=== PATIENT | female | born 1990 | race Caucasian/White ===

== ENCOUNTER 2019-03-19 16:55 | Outpatient (CLI) | payer OTHER, SELFPAY ==
--- NOTE | 2019-03-19 | XR_ITS ---
WS: [id number] PROCEDURE: XR chest 2V* [id number] CLINICAL INFORMATION: COUGH COMPARISON: August 10, 2018 FINDINGS: Heart: Normal cardiac silhouette. Lungs: Lungs are clear. No consolidation or pleural fluid. Bones: Normal visualized bony structures. XR/XR chest 2V* [id number] IMPRESSION: Normal chest
== END 2019-03-19 16:56 | disposition home or self-care (01) ==
LOC: LAB 16:58
PROVIDERS: Family Provider Family Medicine; PCP Family Medicine; Visit Provider Family Medicine
DX: R05 Cough (principal)
CPT/HCPCS: 71046

== ENCOUNTER → 2019-07-18 13:25 | Outpatient (BNVA) | payer OTHER, SELFPAY | PROVIDERS: Family Provider Family Medicine; PCP Family Medicine; Visit Provider Obstetrics & Gynecology | DX: Z01.419 Encounter for gynecological examination (general) (routine) without abnormal findings (principal); Z12.4 Encounter for screening for malignant neoplasm of cervix | CPT/HCPCS: 88175 ==

== ENCOUNTER → 2019-09-29 17:55 | Outpatient (BNVA) | payer OTHER, SELFPAY | PROVIDERS: Family Provider Family Medicine; PCP Family Medicine; Visit Provider Nurse Practitioner | DX: J02.9 Acute pharyngitis, unspecified (principal); N39.0 Urinary tract infection, site not specified; B37.0 Candidal stomatitis | CPT/HCPCS: 80053; 81000; 87071; 87077; 87086; 87186; 87880 ==

== ENCOUNTER 2020-05-14 16:15 | Outpatient (CLI) | payer BC, SELFPAY ==
--- NOTE | 2020-05-14 | MR_ITS ---
WS: [id number] MRI THE PELVIS WITHOUT GADOLINIUM ENHANCEMENT. INDICATION: Sacroiliac joint pain. TECHNIQUE: MRI of the pelvis without gadolinium enhancement. Axial PD, T2, and T2 fat sat imaging. Co sherly T1 and T2 imaging. Sagittal T1-T2 imaging. FINDINGS: Normal bone marrow signal in the bony pelvis and sacrum. Chronic appearing mild sclerosis i nvolving both sacroiliac joints. No bone marrow edema. Recommend correlation with history of sacroili itis. Mild facet arthropathy in the lower lumbar spine. Mild disc bulging L5-S1 with slight effacement of v entral thecal sac. Central disc protrusion impinges the traversing left S1 nerve root. Mild right for aminal narrowing. Annular bulging L4-5. Tarlov cysts in the sacrum. Normal sacrococcygeal junction. MR/MR pelvis wo con* [id number] IMPRESSION: 1. Mild sclerosis involving both sacroiliac joints. No edema. Recommend correl ation with history of sacroiliitis. 2. Otherwise normal bone marrow signal in the lower lumbar spine and sacrum. 3. Prominent central disc protrusion L5-S1 with impingement on the left subart icular recess and traversing left S1 nerve root. Mild right L5-S1 foraminal noe rowing. 4. Mild annular bulging L4-5. 5. Mild facet arthropathy L4-L5 and L5-S1. 6. 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
== END 2020-05-14 16:16 | disposition home or self-care (01) ==
LOC: RADSHAW 16:17
PROVIDERS: PCP Family Medicine; Visit Provider Internal Medicine
DX: M53.3 Sacrococcygeal disorders, not elsewhere classified (principal); G96.191 Perineural cyst; M47.816 Spondylosis without myelopathy or radiculopathy, lumbar region; M47.817 Spondylosis without myelopathy or radiculopathy, lumbosacral region; M51.26 Other intervertebral disc displacement, lumbar region; M51.27 Other intervertebral disc displacement, lumbosacral region
CPT/HCPCS: 72195

== ENCOUNTER → 2020-05-15 10:44 | Outpatient (BNVA) | payer BC, SELFPAY | PROVIDERS: PCP Family Medicine; Visit Provider Internal Medicine | DX: Z79.899 Other long term (current) drug therapy (principal) | CPT/HCPCS: 86480; 86803; 87340 ==

== ENCOUNTER → 2020-06-17 14:43 | Outpatient (BNVA) | payer BC, SELFPAY | PROVIDERS: PCP Family Medicine; Visit Provider Internal Medicine | DX: Z79.899 Other long term (current) drug therapy (principal) | CPT/HCPCS: 84460; 85025 ==

== ENCOUNTER → 2020-07-21 18:28 | Outpatient (BNVA) | payer BC, SELFPAY | PROVIDERS: PCP Family Medicine; Visit Provider Registered Nurse Neonatal Intensive Care | DX: N39.0 Urinary tract infection, site not specified (principal) | CPT/HCPCS: 81000; 87086 ==

== ENCOUNTER → 2020-07-23 08:39 | Outpatient (BNVA) | payer BC, SELFPAY | PROVIDERS: PCP Family Medicine; Visit Provider Internal Medicine | DX: H20.9 Unspecified iridocyclitis (principal); Z79.899 Other long term (current) drug therapy | CPT/HCPCS: 84460; 85025 ==

== ENCOUNTER → 2020-08-19 17:36 | Outpatient (BNVA) | payer BC, SELFPAY | PROVIDERS: PCP Family Medicine; Visit Provider Registered Nurse Neonatal Intensive Care | DX: N39.0 Urinary tract infection, site not specified (principal) | CPT/HCPCS: 81000 ==

== ENCOUNTER → 2020-10-20 13:59 | Outpatient (BNVA) | payer BC, SELFPAY | PROVIDERS: PCP Family Medicine; Visit Provider Obstetrics & Gynecology | DX: Z01.419 Encounter for gynecological examination (general) (routine) without abnormal findings (principal); Z11.3 Encounter for screening for infections with a predominantly sexual mode of transmission | CPT/HCPCS: 86592; 86803; 87340; 87491; 87591; 87806 ==

== ENCOUNTER → 2020-10-29 13:44 | Outpatient (BNVA) | payer BC, SELFPAY | PROVIDERS: PCP Family Medicine; Visit Provider Internal Medicine | DX: Z79.899 Other long term (current) drug therapy (principal) | CPT/HCPCS: 84460; 85025 ==

== ENCOUNTER → 2020-11-04 13:03 | Outpatient (BNVA) | payer BC, SELFPAY | PROVIDERS: PCP Family Medicine; Visit Provider Obstetrics & Gynecology | DX: R10.2 Pelvic and perineal pain (principal); N83.202 Unspecified ovarian cyst, left side | CPT/HCPCS: 76830 ==

== ENCOUNTER → 2020-12-15 14:38 | Outpatient (BNVA) | payer BC, SELFPAY | PROVIDERS: PCP Family Medicine; Visit Provider Internal Medicine | DX: H20.9 Unspecified iridocyclitis (principal); Z79.899 Other long term (current) drug therapy | CPT/HCPCS: 80076; 85025 ==

== ENCOUNTER 2021-04-12 16:17 | Emergency (ER) | payer BC, SELFPAY ==
[2021-04-12 16:42] VITALS: BP 132/93; PULSE 105; RESP 18; TEMP 36.9; O2SAT 97; BMI 33.0
[2021-04-12 17:20] LABS: Hematocrit 40.8 % (37.0-47.0); Hemoglobin 13.7 g/dL (11.5-15.3); Lymphocytes # 0.8 10^3/uL (0.8-4.8); Lymphocytes % 21.9 %; Mean Corpuscular HGB Conc 33.6 g/dL (30.0-36.0); Mean Corpuscular Hemoglobin 26.7 pg (28.0-34.0); Mean Corpuscular Volume 79.4 fl (81-99); Mean Platelet Volume 10.1 fL (7.4-10.4); Monocytes # 0.4 10^3/uL (0.2-0.9); Monocytes % 9.8 %; Neutrophils # 2.58 10^3/uL (1.8-7.7); Nucleated Red Blood Cells % 0 %; Platelet Count 163 10^3/cmm (130-400); Red Blood Count 5.14 10^6/uL (4.1-5.3); Red Cell Distribution Width 13.1 % (12.1-15.1); White Blood Count 3.8 10^3/uL (4.0-10.0)
[2021-04-12 17:32] LABS: HCG, Serum Qual Negative (Negative)
[2021-04-12 17:33] LABS: Bilirubin Urine Neg (Negative); Blood Urine Trace (Negative); Glucose Urine UA Norm (Normal); Ketones Urine 1+ (Negative); Nitrate Urine Negative (Negative); Protein Urine Trace (Negative); Urine Appearance Clear (CLEAR); Urine Color Yellow (Yellow); pH Urine 6 (5-7)
[2021-04-12 17:34] LABS: Add Urine Culture? No; Add Urine Microscopic? YES; Bacteria Urine 2+ /hpf; Leukocyte Esterase Urine 2+ (Negative); RBC Urine RARE /hpf (0-2); Squamous Epithelial Cell Urine 15-25 /hpf (0-5); Urobilinogen Urine Norm (Negative)
[2021-04-12 17:43] LABS: Alanine Aminotransferase 64 U/L (0-33); Albumin Level 4.3 g/dL (3.5-5.2); Alkaline Phosphatase 65 IU/L (35-105); Anion Gap 18.5 (5-19); Aspartate Amino Transferase 46 U/L (0-32); Blood Urea Nitrogen 6 mg/dL (6-20); C Reactive Protein 64.9 mg/L (0.0-4.9); Calcium 8.5 mg/dL (8.5-10.5); Carbon Dioxide 22 mmol/L (22-29); Chloride 104 mmol/L (98-107); Glomerular Filtration Rate 99.6 mL/min (90-130); Glucose 94 mg/dL (65-115); Lipase 48 U/L (13-60); Osmolality Calculated 289 mOsm/kg (285-295); Potassium 3.5 mmol/L (3.5-5.1); Sodium 141 mmol/L (136-145); Total Bilirubin 0.3 mg/dL (0.15-1.2); Total Protein 7.3 g/dL (6.6-8.7)
--- NOTE | 2021-04-12 17:53 | CTR_ITS ---
PROCEDURE INFORMATION: Exam: CT Abdomen And Pelvis With Contrast Exam date and time: 04/12/2021 5:53 PM Age: 30 years old Clinical indication: Abdominal pain; Localized; Right lower quadrant (rlq); Patient HX: C/O rlq abd pain; Additional info: RT lower quad abd pain, PT is covid positive TECHNIQUE: Imaging protocol: Computed tomography of the abdomen and pelvis with contrast. Radiation optimization: All CT scans at this facility use at least one of these dose optimization techniques: automated exposure control; mA and/or kV adjustment per patient size (includes targeted exams where dose is matched to clinical indication); or iterative reconstruction. Contrast material: OMNI 300; Contrast volume: 95 ml; Contrast route: INTRAVENOUS (IV); COMPARISON: MR pelvis wo con* [id number] 05/14/2020 5:11 PM RADIATION DOSE METRICS: Total DLP (mGy-cm): 1662.53 FINDINGS: Lungs: There are patchy infiltrates at the lung bases. Liver: Normal. No mass. Gallbladder and bile ducts: Normal. No calcified stones. No ductal dilation. Pancreas: Normal. No ductal dilation. Spleen: Normal. No splenomegaly. Adrenal glands: Normal. No mass. Kidneys and ureters: Normal. No hydronephrosis. Stomach and bowel: Unremarkable. No obstruction. No mucosal thickening. Appendix: A normal appendix is identified. Intraperitoneal space: Unremarkable. No free air. No significant fluid collection. Vasculature: Unremarkable. No abdominal aortic aneurysm. Lymph nodes: Unremarkable. No enlarged lymph nodes. Urinary bladder: Unremarkable as visualized. Reproductive: Unremarkable as visualized. Bones/joints: Unremarkable. No acute fracture. Soft tissues: Unremarkable. CT/CT abdomen pelvis w con* [id number] IMPRESSION: There are patchy infiltrates at the lung bases.Commonly reported imaging features of COVID-19 pneumonia are present. Other processes such as influenza pneumonia and organizing pneumonia, as can be seen with drug toxicity and connective tissue disease, can cause a similar imaging pattern. (Reference: Naeem) REFERENCES: baldomero Wharton al., Radiological Society of [place] Expert Consensus Statement on Reporting Chest CT Findings Related to COVID-19. Endorsed by the Society of Thoracic Radiology, the [employer], and RSNA. Published May 30, 2019.
--- NOTE | 2021-04-12 17:59 | W.ED.ABDPA2 ---
Documented by User: SAMI Brito 04/12/21 20:40 HPI - Abdominal Pain General: Chief Complaint: Abdominal Pain Stated Complaint: abdomen pain Time Seen by Provider: 04/12/21 17:58 History of Present Illness: 30-year-old female comes in today with complaints of nausea and vomiting and right lower quadrant abdominal pain starting today. Patient was diagnosed with COVID-19 on 01 April. Patient appears mildly unwell but nontoxic. Patient does appear in some mild pain. Patient is concerned about the right lower quadrant abdominal pain being secondary to an appendicitis. Pain started today about 6 hours ago. MD elicited complaint: abdominal pain Pertinent past history: none Onset (ago): hour(s) Pain Consistency: intermittent Location: RLQ Severity: moderate Exacerbating factors: movement Relieving factors: nothing Context: other (Covid positive since the 01 April) Associated Symptoms: Reports diarrhea, fever(s), nausea and vomiting Related Data: Date of Last Menstrual Period: 03/16/21 Review of Systems Const: Reports: fever(s) GI: Reports: abdominal pain, nausea, vomiting and diarrhea [facility] PFSH: Medical History (Updated 04/12/21 @ 20:27 by SAMI Brito) Acne Had pretty severe acne and was taking Accutane and other treatment 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 Harden in [facility] in [place]. Her last treatment was in May or June 2019. Not currently on any medication other than Marjorie Anxiety as acute reaction to exceptional stress Since her in November 2018 of her myocardial infarction she has been on medication and seeing the therapist Ms Bridges and states that symptoms are well controlled with these interventions. Asthma States that she has had asthma as a child. Now uses her inhaler a couple of times a year No pertinent past medical history Denies diabetes, hypertension, seizures, DVT/PE. Her primary care doctor is Dr. Monk. 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 She was started on Xeljanz in June 2020 managed by her keeler polygraph operator Dr. Ni in [facility] Surgical History H/O removal of cyst Removal of right labial cyst; [place] 06/30/[address] [place] [facility] [place]ology showed inflammatory cyst and granulation tissue. S/P tonsillectomy 2013, denies problems with anesthesia S/P wisdom tooth extraction 2010 Family History (Updated 10/20/20 @ 13:00 by Jess Guzman RN) Grandmother Heart disease Paternal great grandmother Hypertension maternal and paternal Breast cancer maternal, age at diagnosis unknown Mother Diabetes Hypertension Family/Other Thyroid condition cousin paternal aunt Breast cancer materna aunt, diagnosed in her 50s Denies family history of Cervical cancer Colon cancer Ovarian cancer DVT (deep venous thrombosis) Bleeding disorder Pulmonary embolism Uterine cancer Social History (Updated 10/20/20 @ 12:49 by Jess Guzman RN) Smoking and tobacco status: never smoked Alcohol intake: never Female Reproductive History: Date of last menstrual period: 03/16/21 Physical Exam Const: COMMON NORMALS: alert HENMT: NOSE: Nasal discharge present Resp: COMMON NORMALS: normal respiratory effort and clear to auscultation bilaterally AUSCULTATION: clear to auscultation bilaterally Cardio: COMMON NORMALS: regular rate and regular rhythm RATE: regular rate RHYTHM: regular rhythm GI: COMMON NORMALS: Soft to palpation AUSCULTATION: Yes normoactive bowel sounds PALPATION: Yes Soft to palpation and Yes Tenderness to palpation present (GI) Details: RLQ and RUQ Extremity: COMMON NORMALS: normal to inspection Neuro: SENSORIUM/ORIENTATION: Yes alert Psych: COMMON NORMALS: cooperative Skin: COMMON NORMALS: no rashes or lesions noted GENERAL SKIN EXAM: no rashes or lesions noted Course Vital Signs: Vital signs: Vital Signs Temperature 97.9 F 04/12/21 20:37 Pulse Rate 80 04/12/21 20:47 Respiratory Rate 16 04/12/21 20:47 Blood Pressure 122/79 04/12/21 20:47 Pulse Oximetry 99 04/12/21 20:47 MDM - Abdominal Pain Medical Decision Making 30-year-old female comes in with right lower quadrant pain starting today. Patient has also had episodes of nausea vomiting and diarrhea. Patient has been diagnosed with COVID-19 and is on day 10 of illness. On exam patient has normal respiration and clear to auscultation. Heart rates regular. No edema is noted. Abdomen soft with some tenderness in the right lower quadrant. Differential diagnosis includes but not limited to enteritis, constipation, appendicitis, pneumonia. Laboratory values noted some leukopenia, elevation CRP, mild elevation in AST and ALT, and a contaminated urine. CT of the abdomen pelvis was completed which showed a normal appendix but did show some patchy pneumonia in the lower quiroz of bilateral lungs. I believe patient probably has a little gastroenteritis secondary to her COVID-19 infection. Patient was given 1 L IV fluids. Patient was also treated with dexamethasone due to the COVID-19 pneumonia, and Zofran for nausea. Patient was given 1 dose of ketorolac for her discomfort. Patient reported understanding of care plan need for follow-up or return to the ER. Lab Data : 04/12/21 16:50 04/12/21 16:50 Labs/Radiology: Radiology Impressions Abdomen/Pelvis CT 04/12/21 17:53 IMPRESSION: There are patchy infiltrates at the lung bases.Commonly reported imaging features of COVID-19 pneumonia are present. Other processes such as influenza pneumonia and organizing pneumonia, as can be seen with drug toxicity and connective tissue disease, can cause a similar imaging pattern. (Reference: Naeem) REFERENCES: Naeem Valiente, et al., Radiological Society of [place] Expert Consensus Statement on Reporting Chest CT Findings Related to COVID-19. Endorsed by the Society of Thoracic Radiology, the [employer], and RSNA. Published May 30, 2019. Laboratory Results WBC 3.8 10^3/uL (4.0-10.0) L 04/12/21 16:50 RBC 5.14 10^6/uL (4.1-5.3) 04/12/21 16:50 Hgb 13.7 g/dL (11.5-15.3) 04/12/21 16:50 Hct 40.8 % (37.0-47.0) 04/12/21 16:50 MCV 79.4 fl (81-99) L 04/12/21 16:50 MCH 26.7 pg (28.0-34.0) L 04/12/21 16:50 MCHC 33.6 g/dL (30.0-36.0) 04/12/21 16:50 RDW 13.1 % (12.1-15.1) 04/12/21 16:50 Plt Count 163 10^3/cmm (130-400) 04/12/21 16:50 MPV 10.1 fL (7.4-10.4) 04/12/21 16:50 Neut % (Auto) 68.0 % 04/12/21 16:50 Lymph % (Auto) 21.9 % 04/12/21 16:50 [place] % (Auto) 9.8 % 04/12/21 16:50 Eos % (Auto) 0.0 % 04/12/21 16:50 Baso % (Auto) 0.0 % 04/12/21 16:50 Neut # (Auto) 2.58 10^3/uL (1.8-7.7) 04/12/21 16:50 Lymph # (Auto) 0.8 10^3/uL (0.8-4.8) 04/12/21 16:50 [place] # (Auto) 0.4 10^3/uL (0.2-0.9) 04/12/21 16:50 Eos # (Auto) 0.0 10^3/uL (0.0-0.8) 04/12/21 16:50 Baso # (Auto) 0.0 10^3/uL (0.0-0.1) 04/12/21 16:50 Nucleated RBC % (auto) 0 % 04/12/21 16:50 Nucleated RBCs # 0.0 /100WBC 04/12/21 16:50 Sodium 141 mmol/L (136-145) 04/12/21 16:50 Potassium 3.5 mmol/L (3.5-5.1) 04/12/21 16:50 Chloride 104 mmol/L (98-107) 04/12/21 16:50 Carbon Dioxide 22 mmol/L (22-29) 04/12/21 16:50 Anion Gap 18.5 (5-19) 04/12/21 16:50 BUN 6 mg/dL (6-20) 04/12/21 16:50 Creatinine 0.7 mg/dL (0.5-0.9) 04/12/21 16:50 GFR Calculation 99.6 mL/min (90-130) 04/12/21 16:50 Glucose 94 mg/dL (65-115) 04/12/21 16:50 Calculated Osmolality 289 mOsm/kg (285-295) 04/12/21 16:50 Calcium 8.5 mg/dL (8.5-10.5) 04/12/21 16:50 Total Bilirubin 0.3 mg/dL (0.15-1.2) 04/12/21 16:50 AST 46 U/L (0-32) H 04/12/21 16:50 ALT 64 U/L (0-33) H 04/12/21 16:50 Alkaline Phosphatase 65 IU/L (35-105) 04/12/21 16:50 C-Reactive Protein 64.9 mg/L (0.0-4.9) H 04/12/21 16:50 Total Protein 7.3 g/dL (6.6-8.7) 04/12/21 16:50 Albumin 4.3 g/dL (3.5-5.2) 04/12/21 16:50 Globulin 3.0 g/dL (1.3-4.6) 04/12/21 16:50 Lipase 48 U/L (13-60) 04/12/21 16:50 HCG, Qual Negative (Negative) 04/12/21 16:50 Urine Color Yellow (Yellow) 04/12/21 17:00 Urine Appearance Clear (CLEAR) 04/12/21 17:00 Urine pH 6 (5-7) 04/12/21 17:00 Ur Specific [place] 1.010 (1.005-1.030) 04/12/21 17:00 Urine Protein Trace (Negative) 04/12/21 17:00 Urine Glucose (UA) Norm (Normal) 04/12/21 17:00 Urine Ketones 1+ (Negative) H 04/12/21 17:00 Urine Blood Trace (Negative) H 04/12/21 17:00 Urine Nitrate Negative (Negative) 04/12/21 17:00 Urine Bilirubin Neg (Negative) 04/12/21 17:00 Urine Urobilinogen Norm mg/dL (Negative) 04/12/21 17:00 Ur Leukocyte Esterase 2+ (Negative) H 04/12/21 17:00 Urine RBC Rare /hpf (0-2) 04/12/21 17:00 Urine WBC 10-15 /hpf (0-5) H 04/12/21 17:00 Ur Squamous Epith Cells 15-25 /hpf (0-5) H 04/12/21 17:00 Amorphous Sediment Not Reportable 04/12/21 17:00 Urine Bacteria 2+ /hpf (NONE) H 04/12/21 17:00 Discharge Plan Discharge Patient Disposition: Home Clinical Impression: Abdominal pain, Pneumonia due to 2019-nCoV Condition: Stable Prescriptions: New ondansetron 4 mg tablet,disintegrating 4 mg PO Q8H PRN (Reason: nausea and vomiting) Qty: 7 0RF No Action albuterol sulfate 2.5 mg /3 mL (0.083 %) solution for nebulization 2.5 mg INHALATION Q6H 0RF loratadine-pseudoephedrine [Claritin-D 24 Hour] 10-240 mg tablet extended release 24 hr 1 tab PO DAILY 0RF Mucinex 1,200 mg tablet extended release 12hr 1,200 mg PO DAILY 0RF drospirenone-ethinyl estradiol [MARJORIE (28)] 3-0.02 mg tablet 1 tab PO ONCE Qty: 84 3RF Xeljanz 10 mg tablet 10 mg PO DAILY 0RF alprazolam 0.25 mg tablet 0.25 mg PO BID PRN (Reason: anxiety) 20 Days Qty: 30 2RF trazodone 50 mg tablet See Rx Instructions .ROUTE .COMPLEX Qty: 30 0RF Dose Instruction: TAKE 1/2 TO 1 (ONE-HALF TO ONE) TABLET BY MOUTH ONCE DAILY AT BEDTIME Rx Instructions: TAKE 1/2 TO 1 (ONE-HALF TO ONE) TABLET BY MOUTH ONCE DAILY AT BEDTIME citalopram 20 mg tablet See Rx Instructions .ROUTE .COMPLEX Qty: 60 0RF Dose Instruction: Take 1 tablet by mouth once daily Rx Instructions: Take 1 tablet by mouth once daily Discharge Orders: Discharge ED (Routine); Ordered 04/12/21 Ordered By: Girish Mock Referrals: Ady Monk MD [Primary Care Provider] - Patient Instructions: Viral Pneumonia (ED), Abdominal Pain (ED) Activity Restrictions/Additional Instructions: Home and rest. Drink plenty of water and fluids. Use acetaminophen and ibuprofen for discomfort. Use Zofran, ondansetron, 4 mg every 8 hours as needed for nausea and vomiting. Follow-up with primary care for further instruction. Return to the ER for severe chest pain or worsening shortness of breath. 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 Harden in [facility] in [place]. Her last treatment was in May or June 2019. Not currently on any medication other than Marjorie Anxiety as acute reaction to exceptional stress Since her in November 2018 of her myocardial infarction she has been on medication and seeing the therapist Ms Bridges and states that symptoms are well controlled with these interventions. Asthma States that she has had asthma as a child. Now uses her inhaler a couple of times a year No pertinent past medical history Denies diabetes, hypertension, seizures, DVT/PE. Her primary care doctor is Dr. Monk. 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 She was started on Xeljanz in June 2020 managed by her keeler polygraph operator Dr. Ni in [facility] Surgical History H/O removal of cyst Removal of right labial cyst; [place] 06/30/[address] [place] [facility] [place]ology showed inflammatory cyst and granulation tissue. S/P tonsillectomy 2013, denies problems with anesthesia S/P wisdom tooth extraction 2010 Family History (Updated 10/20/20 @ 13:00 by Jess Guzman RN) Grandmother Heart disease Paternal great grandmother Hypertension maternal and paternal Breast cancer maternal, age at diagnosis unknown Mother Diabetes Hypertension Family/Other Thyroid condition cousin paternal aunt Breast cancer materna aunt, diagnosed in her 50s Denies family history of Cervical cancer Colon cancer Ovarian cancer DVT (deep venous thrombosis) Bleeding disorder Pulmonary embolism Uterine cancer Social History (Updated 10/20/20 @ 12:49 by Jess Guzman RN) Smoking and tobacco status: never smoked Alcohol intake: never Course Vital Signs: Vital signs: Vital Signs Temperature 97.9 F 04/12/21 20:37 Pulse Rate 80 04/12/21 20:47 Respiratory Rate 16 04/12/21 20:47 Blood Pressure 122/79 04/12/21 20:47 Pulse Oximetry 99 04/12/21 20:47 MDM - Abdominal Pain Medical Decision Making 30-year-old female comes in with right lower quadrant pain starting today. Patient has also had episodes of nausea vomiting and diarrhea. Patient has been diagnosed with COVID-19 and is on day 10 of illness. On exam patient has normal respiration and clear to auscultation. Heart rates regular. No edema is noted. Abdomen soft with some tenderness in the right lower quadrant. Differential diagnosis includes but not limited to enteritis, constipation, appendicitis, pneumonia. Laboratory values noted some leukopenia, elevation CRP, mild elevation in AST and ALT, and a contaminated urine. CT of the abdomen pelvis was completed which showed a normal appendix but did show some patchy pneumonia in the lower quiroz of bilateral lungs. I believe patient probably has a little gastroenteritis secondary to her COVID-19 infection. Patient was given 1 L IV fluids. Patient was also treated with dexamethasone due to the COVID-19 pneumonia, and Zofran for nausea. Patient was given 1 dose of ketorolac for her discomfort. Patient reported understanding of care plan need for follow-up or return to the ER. This patient was originally seen by SAMI Peguero.? I agree with his history, evaluation, and treatment. Lab Data : 04/12/21 16:50 04/12/21 16:50 Labs/Radiology: Radiology Impressions Abdomen/Pelvis CT 04/12/21 17:53 IMPRESSION: There are patchy infiltrates at the lung bases.Commonly reported imaging features of COVID-19 pneumonia are present. Other processes such as influenza pneumonia and organizing pneumonia, as can be seen with drug toxicity and connective tissue disease, can cause a similar imaging pattern. (Reference: Naeem) REFERENCES: Naeem Valiente et al., Radiological Society of [place] Expert Consensus Statement on Reporting Chest CT Findings Related to COVID-19. Endorsed by the Society of Thoracic Radiology, the [employer] [employer], and RSNA. Published May 30, 2019. Laboratory Results WBC 3.8 10^3/uL (4.0-10.0) L 04/12/21 16:50 RBC 5.14 10^6/uL (4.1-5.3) 04/12/21 16:50 Hgb 13.7 g/dL (11.5-15.3) 04/12/21 16:50 Hct 40.8 % (37.0-47.0) 04/12/21 16:50 MCV 79.4 fl (81-99) L 04/12/21 16:50 MCH 26.7 pg (28.0-34.0) L 04/12/21 16:50 MCHC 33.6 g/dL (30.0-36.0) 04/12/21 16:50 RDW 13.1 % (12.1-15.1) 04/12/21 16:50 Plt Count 163 10^3/cmm (130-400) 04/12/21 16:50 MPV 10.1 fL (7.4-10.4) 04/12/21 16:50 Neut % (Auto) 68.0 % 04/12/21 16:50 Lymph % (Auto) 21.9 % 04/12/21 16:50 [place] % (Auto) 9.8 % 04/12/21 16:50 Eos % (Auto) 0.0 % 04/12/21 16:50 Baso % (Auto) 0.0 % 04/12/21 16:50 Neut # (Auto) 2.58 10^3/uL (1.8-7.7) 04/12/21 16:50 Lymph # (Auto) 0.8 10^3/uL (0.8-4.8) 04/12/21 16:50 [place] # (Auto) 0.4 10^3/uL (0.2-0.9) 04/12/21 16:50 Eos # (Auto) 0.0 10^3/uL (0.0-0.8) 04/12/21 16:50 Baso # (Auto) 0.0 10^3/uL (0.0-0.1) 04/12/21 16:50 Nucleated RBC % (auto) 0 % 04/12/21 16:50 Nucleated RBCs # 0.0 /100WBC 04/12/21 16:50 Sodium 141 mmol/L (136-145) 04/12/21 16:50 Potassium 3.5 mmol/L (3.5-5.1) 04/12/21 16:50 Chloride 104 mmol/L (98-107) 04/12/21 16:50 Carbon Dioxide 22 mmol/L (22-29) 04/12/21 16:50 Anion Gap 18.5 (5-19) 04/12/21 16:50 BUN 6 mg/dL (6-20) 04/12/21 16:50 Creatinine 0.7 mg/dL (0.5-0.9) 04/12/21 16:50 GFR Calculation 99.6 mL/min (90-130) 04/12/21 16:50 Glucose 94 mg/dL (65-115) 04/12/21 16:50 Calculated Osmolality 289 mOsm/kg (285-295) 04/12/21 16:50 Calcium 8.5 mg/dL (8.5-10.5) 04/12/21 16:50 Total Bilirubin 0.3 mg/dL (0.15-1.2) 04/12/21 16:50 AST 46 U/L (0-32) H 04/12/21 16:50 ALT 64 U/L (0-33) H 04/12/21 16:50 Alkaline Phosphatase 65 IU/L (35-105) 04/12/21 16:50 C-Reactive Protein 64.9 mg/L (0.0-4.9) H 04/12/21 16:50 Total Protein 7.3 g/dL (6.6-8.7) 04/12/21 16:50 Albumin 4.3 g/dL (3.5-5.2) 04/12/21 16:50 Globulin 3.0 g/dL (1.3-4.6) 04/12/21 16:50 Lipase 48 U/L (13-60) 04/12/21 16:50 HCG, Qual Negative (Negative) 04/12/21 16:50 Urine Color Yellow (Yellow) 04/12/21 17:00 Urine Appearance Clear (CLEAR) 04/12/21 17:00 Urine pH 6 (5-7) 04/12/21 17:00 Ur Specific [place] 1.010 (1.005-1.030) 04/12/21 17:00 Urine Protein Trace (Negative) 04/12/21 17:00 Urine Glucose (UA) Norm (Normal) 04/12/21 17:00 Urine Ketones 1+ (Negative) H 04/12/21 17:00 Urine Blood Trace (Negative) H 04/12/21 17:00 Urine Nitrate Negative (Negative) 04/12/21 17:00 Urine Bilirubin Neg (Negative) 04/12/21 17:00 Urine Urobilinogen Norm mg/dL (Negative) 04/12/21 17:00 Ur Leukocyte Esterase 2+ (Negative) H 04/12/21 17:00 Urine RBC Rare /hpf (0-2) 04/12/21 17:00 Urine WBC 10-15 /hpf (0-5) H 04/12/21 17:00 Ur Squamous Epith Cells 15-25 /hpf (0-5) H 04/12/21 17:00 Amorphous Sediment Not Reportable 04/12/21 17:00 Urine Bacteria 2+ /hpf (NONE) H 04/12/21 17:00 Discharge Plan Discharge Patient Disposition: Home Clinical Impression: Abdominal pain, Pneumonia due to 2019-nCoV Condition: Stable Prescriptions: New ondansetron 4 mg tablet,disintegrating 4 mg PO Q8H PRN (Reason: nausea and vomiting) Qty: 7 0RF No Action albuterol sulfate 2.5 mg /3 mL (0.083 %) solution for nebulization 2.5 mg INHALATION Q6H 0RF loratadine-pseudoephedrine [Claritin-D 24 Hour] 10-240 mg tablet extended release 24 hr 1 tab PO DAILY 0RF Mucinex 1,200 mg tablet extended release 12hr 1,200 mg PO DAILY 0RF drospirenone-ethinyl estradiol [MARJORIE (28)] 3-0.02 mg tablet 1 tab PO ONCE Qty: 84 3RF Xeljanz 10 mg tablet 10 mg PO DAILY 0RF alprazolam 0.25 mg tablet 0.25 mg PO BID PRN (Reason: anxiety) 20 Days Qty: 30 2RF trazodone 50 mg tablet See Rx Instructions .ROUTE .COMPLEX Qty: 30 0RF Dose Instruction: TAKE 1/2 TO 1 (ONE-HALF TO ONE) TABLET BY MOUTH ONCE DAILY AT BEDTIME Rx Instructions: TAKE 1/2 TO 1 (ONE-HALF TO ONE) TABLET BY MOUTH ONCE DAILY AT BEDTIME citalopram 20 mg tablet See Rx Instructions .ROUTE .COMPLEX Qty: 60 0RF Dose Instruction: Take 1 tablet by mouth once daily Rx Instructions: Take 1 tablet by mouth once daily Discharge Orders: Discharge ED (Routine); Ordered 04/12/21 Ordered By: Girish Mock Referrals: Ady Monk MD [Primary Care Provider] - Patient Instructions: Viral Pneumonia (ED), Abdominal Pain (ED) Activity Restrictions/Additional Instructions: Home and rest. Drink plenty of water and fluids. Use acetaminophen and ibuprofen for discomfort. Use Zofran, ondansetron, 4 mg every 8 hours as needed for nausea and vomiting. Follow-up with primary care for further instruction. Return to the ER for severe chest pain or worsening shortness of breath. Coding Level of Care Code ED Manufacturing Technology Professor for Bryang Fwd Exam Comprehensive
[2021-04-12] MEDS: sodium chloride 0.9% 1,000 ML 999 ML IV (18:06)
[2021-04-12] MEDS: iohexol 300 mg/mL 100 mL Btl IV (19:39)
[2021-04-12] MEDS: ketorolac 30 mg/mL INJ IVP (20:13)
[2021-04-12] MEDS: ondansetron 2 mg/ML SDV 2 mL 4 MG IVP (20:13)
[2021-04-12] MEDS: dexamethasone 4 mg/mL INJ 8 MG IVP (20:34)
[2021-04-12 20:37] VITALS: BP 120/86; PULSE 80; RESP 18; TEMP 36.6; O2SAT 100
[2021-04-12 20:47] VITALS: BP 122/79; PULSE 80; RESP 16; O2SAT 99
== END 2021-04-12 20:50 | disposition home or self-care (01) ==
PROVIDERS: Emergency Medicine; Emergency Provider Nurse Practitioner Family; PCP Family Medicine
DX: U07.1 COVID-19 (principal); J12.82 Pneumonia due to coronavirus disease 2019; R10.9 Unspecified abdominal pain
CPT/HCPCS: 74177; 80053; 81001; 83690; 84703; 85025; 86140; 96361; 96374; 96375; 99284; J1100; J1885; J2405; J7030; Q9967

== ENCOUNTER → 2021-05-13 08:30 | Outpatient (BNVA) | payer BC, SELFPAY | PROVIDERS: PCP Family Medicine; Visit Provider Internal Medicine | DX: Z79.899 Other long term (current) drug therapy (principal) | CPT/HCPCS: 80076; 85025 ==

== ENCOUNTER → 2021-06-19 09:55 | Outpatient (BNVA) | payer BC, SELFPAY | PROVIDERS: PCP Family Medicine; Visit Provider Dermatology | DX: Z79.899 Other long term (current) drug therapy (principal) | CPT/HCPCS: 81025 ==

== ENCOUNTER → 2021-07-20 14:05 | Outpatient (BNVA) | payer BC, SELFPAY | PROVIDERS: PCP Family Medicine; Visit Provider Internal Medicine | DX: H20.9 Unspecified iridocyclitis (principal); Z79.899 Other long term (current) drug therapy | CPT/HCPCS: 80076; 85025 ==

== ENCOUNTER 2021-09-20 20:24 | Emergency (ER) | payer BC, SELFPAY ==
[2021-09-20 20:51] VITALS: BP 176/120; PULSE 90; RESP 18; TEMP 36.7; O2SAT 98; BMI 35.1
--- NOTE | 2021-09-20 21:45 | CTR_ITS ---
PROCEDURE INFORMATION: Exam: CT Head Without Contrast Exam date and time: 09/20/2021 11:33 PM Age: 31 years old Clinical indication: Pain; Headache not specified; Patient HX: C/O RANDALL w nausea and photophobia TECHNIQUE: Imaging protocol: Computed tomography of the head without contrast. Radiation optimization: All CT scans at this facility use at least one of these dose optimization techniques: automated exposure control; mA and/or kV adjustment per patient size (includes targeted exams where dose is matched to clinical indication); or iterative reconstruction. COMPARISON: No relevant prior studies available. RADIATION DOSE METRICS: Total DLP (mGy-cm): 1050.28 FINDINGS: Brain: Normal. No hemorrhage. Unremarkable white matter. No mass effect. Cerebral ventricles: No ventriculomegaly. Paranasal sinuses: Visualized sinuses are unremarkable. No fluid levels. Mastoid air cells: Visualized mastoid air cells are well aerated. Bones/joints: Unremarkable. No acute fracture. Soft tissues: Unremarkable. CT/CT head wo con* [id number] IMPRESSION: No acute intracranial abnormality.
[2021-09-20 22:30] VITALS: BP 199/134; PULSE 110; RESP 14; O2SAT 100
--- NOTE | 2021-09-20 22:35 | ED_ITS ---
HPI - Headache General: Chief Complaint: Headache Stated Complaint: migrane Time Seen by Provider: 09/20/21 22:19 History of Present Illness: Patient is a 31-year-old female comes to the ED with headache. Headache started at 9 AM this morning. She does not have a history of migraines and has never had a headache like this before. She rates her current headache a 7 out of 10. Pain starts in her neck and radiates up to the back of her head and behind the eyes bilaterally. Endorses nausea and photophobia. She has taken Excedrin and a muscle relaxer today and it did not help symptoms at all.Patient has also had elevated blood pressures today since headache started. Denies any emesis, fevers, vision changes, numbness tingling or weakness to face or 1 side of body. Recent head injury or trauma preceding headache. Associated symptoms: Reports nausea; Deny chest pain, fever(s), rash or vomiting Review of Systems Const: Denies: fever(s), chills or fatigue Eyes: Reports: photophobia; Denies: change in vision or eye discomfort ENMT: Denies: throat pain, odynophagia, nasal discharge or nasal congestion Card: Denies: chest pain, palpitations, edema, swelling of feet/ankles, dyspnea on exertion or orthopnea Resp: Denies: dyspnea, productive cough or non-productive cough GI: Reports: nausea; Denies: abdominal pain, vomiting, diarrhea, constipation or hematochezia : Denies: flank pain, dysuria or hematuria Musc: Denies: neck pain, back pain or extremity swelling Skin/Breast: Denies: rash or new lesions Neuro: Reports: headache(s); Denies: numbness in extremities or weakness in extremities PFS ED PFSH: Medical History Acne Had pretty severe acne and was taking Accutane and other treatment under coffee roaster helper Dr. Harden in [facility] in [place]. Her last treatment was in May or June 2019. Not currently on any medication other than Marjorie Anxiety as acute reaction to exceptional stress Since her in November 2018 of her myocardial infarction she has been on medication and seeing the therapist Ms Bridges and states that symptoms are well controlled with these interventions. Asthma States that she has had asthma as a child. Now uses her inhaler a couple of times a year No pertinent past medical history Denies diabetes, hypertension, seizures, DVT/PE. Her primary care doctor is Dr. Monk. 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 She was started on Xeljanz in June 2020 managed by her coating technician Dr. Ni in [facility] Surgical History H/O removal of cyst Removal of right labial cyst; Done on 06/30/[address] Prieto at [facility]. Pathology showed inflammatory cyst and granulation tissue. S/P tonsillectomy 2013, denies problems with anesthesia S/P wisdom tooth extraction 2010 Family History Grandmother Heart disease Paternal great grandmother Hypertension maternal and paternal Breast cancer maternal, age at diagnosis unknown Mother Diabetes Hypertension Family/Other Thyroid condition cousin paternal aunt Breast cancer materna aunt, diagnosed in her 50s Denies family history of Cervical cancer Colon cancer Ovarian cancer DVT (deep venous thrombosis) Bleeding disorder Pulmonary embolism Uterine cancer Social History Smoking and tobacco status: never smoked Alcohol intake: never Female Reproductive History: Date of last menstrual period: 03/16/21 Physical Exam Const: COMMON NORMALS: patient oriented x3 and alert GENERAL APPEARANCE: cooperative HENMT: COMMON NORMALS: normocephalic HEAD & SCALP: normocephalic MOUTH: Normal oral and palatal mucosa present THROAT: posterior oropharynx normal and uvula midline Neck/C-Spine: COMMON NORMALS: supple GENERAL: Yes normal visual inspection Resp: COMMON NORMALS: normal respiratory effort, No retractions, No use of accessory muscles and clear to auscultation bilaterally AUSCULTATION: clear to auscultation bilaterally Cardio: COMMON NORMALS: regular rate, regular rhythm, S1 normal heart sound present, S2 normal heart sound present, No gallops present (Cardio), No clicks present (Cardio), No murmurs present (Cardio) and Peripheral pulses 2+ throughout RATE: regular rate RHYTHM: regular rhythm HEART SOUNDS: S1 normal heart sound present and S2 normal heart sound present PERIPHERAL PULSES: Peripheral pulses 2+ throughout GI: COMMON NORMALS: Normal to inspection, nondistended, normoactive bowel sounds present, Soft to palpation, non-tender and no masses PALPATION: Yes Soft to palpation : COMMON NORMALS: Yes no CVA tenderness BLADDER/KIDNEY EXAM: Yes no CVA tenderness Back/Pelvis: COMMON NORMALS: no CVA tenderness Extremity: COMMON NORMALS: normal to inspection Neuro: COMMON NORMALS: patient oriented x3, CN's II-XII intact bilaterally, moves all extremities, no focal motor deficits and no sensory deficits noted SENSORIUM/ORIENTATION: Yes alert COORDINATION/BALANCE: [id number] test normal SPEECH: speech normal SENSORY EXAM: Yes extremities (intact) MOTOR EXAM: 5/5 motor strength present throughout and Pronator motor function not present COORDINATION: [id number] test normal Skin: GENERAL SKIN EXAM: dry skin Course ED course: After patient received IV migraine cocktail she said her headache is now rated a 1 out of 10 and she is feeling a lot better. Vital Signs: Vital signs: Vital Signs Temperature 98.1 F 09/20/21 20:51 Pulse Rate 99 09/21/21 02:12 Respiratory Rate 17 09/21/21 02:12 Blood Pressure 147/98 09/21/21 02:12 Pulse Oximetry 97 09/21/21 02:12 MDM - Headache Medical Decision Making Patient is a 31-year-old female comes to the ED with migraine type headache and elevated blood pressures. This is the first time she has ever had a headache like this and has no history of migraines. She is having photophobia, nausea and she rates her headache a 7 out of 10. Denies any neuro symptoms. Her highest blood pressure was 199/134 and the rest of her vitals were stable. Neuro exam showed no deficits and the rest of a exam was benign. CBC and CMP were unremarkable. CT of head showed no acute findings. Patient was given migraine cocktail of meds and headache improved greatly. Her blood pressures were still elevated so she was given a dose of p.o. clonidine and p.o. hydralazine here in the ED to reduce her blood pressure and it was 147/98 before discharge. She was diagnosed with hypertensive urgency and a migraine and discharged home with prescription for hydrochlorothiazide to take daily as needed for elevated blood pressures. She was told to follow-up with her PCP within the next week to recheck blood pressures. Strict return to ED precautions given. Patient understood and agreed with plan. Lab Data I reviewed the patient's lab results. : 09/20/21 23:15 09/20/21 23:[address] 09/20/21 21:45 IMPRESSION: No acute intracranial abnormality. Laboratory Results WBC 11.1 10^3/uL (4.0-10.0) H 09/20/21 23:15 RBC 4.67 10^6/uL (4.1-5.3) 09/20/21 23:15 Hgb 12.5 g/dL (11.5-15.3) 09/20/21 23:15 Hct 37.3 % (37.0-47.0) 09/20/21 23:15 MCV 79.9 fl (81-99) L 09/20/21 23:15 MCH 26.8 pg (28.0-34.0) L 09/20/21 23:15 MCHC 33.5 g/dL (30.0-36.0) 09/20/21 23:15 RDW 14.6 % (12.1-15.1) 09/20/21 23:15 Plt Count 387 10^3/cmm (130-400) 09/20/21 23:15 MPV 9.1 fL (7.4-10.4) 09/20/21 23:15 Neut % (Auto) 71.4 % 09/20/21 23:15 Lymph % (Auto) 21.0 % 09/20/21 23:15 [place] % (Auto) 6.6 % 09/20/21 23:15 Eos % (Auto) 0.3 % 09/20/21 23:15 Baso % (Auto) 0.3 % 09/20/21 23:15 Neut # (Auto) 7.97 10^3/uL (1.8-7.7) H 09/20/21 23:15 Lymph # (Auto) 2.3 10^3/uL (0.8-4.8) 09/20/21 23:15 [place] # (Auto) 0.7 10^3/uL (0.2-0.9) 09/20/21 23:15 Eos # (Auto) 0.0 10^3/uL (0.0-0.8) 09/20/21 23:15 Baso # (Auto) 0.0 10^3/uL (0.0-0.1) 09/20/21 23:15 Nucleated RBC % (auto) 0 % 09/20/21 23:15 Nucleated RBCs # 0.0 /100WBC 09/20/21 23:15 Sodium 137 mmol/L (136-145) 09/20/21 23:15 Potassium 3.9 mmol/L (3.5-5.1) 09/20/21 23:15 Chloride 100 mmol/L (98-107) 09/20/21 23:15 Carbon Dioxide 21 mmol/L (22-29) L 09/20/21 23:15 Anion Gap 19.9 (5-19) H 09/20/21 23:15 BUN 10 mg/dL (6-20) 09/20/21 23:15 Creatinine 0.5 mg/dL (0.5-0.9) 09/20/21 23:15 GFR Calculation 145.9 mL/min (90-130) H 09/20/21 23:15 Glucose 82 mg/dL (65-115) 09/20/21 23:15 Calculated Osmolality 282 mOsm/kg (285-295) L 09/20/21 23:15 Calcium 9.4 mg/dL (8.5-10.5) 09/20/21 23:15 Total Bilirubin 0.4 mg/dL (0.15-1.2) 09/20/21 23:15 AST 41 U/L (0-32) H 09/20/21 23:15 ALT 37 U/L (0-33) H 09/20/21 23:15 Alkaline Phosphatase 59 IU/L (35-105) 09/20/21 23:15 Total Protein 8.0 g/dL (6.6-8.7) 09/20/21 23:15 Albumin 4.5 g/dL (3.5-5.2) 09/20/21 23:15 Globulin 3.5 g/dL (1.3-4.6) 09/20/21 23:15 Discharge Plan Discharge Patient Disposition: Home Clinical Impression: Hypertensive urgency Migraine Qualifiers: Migraine type: without aura Status migrainosus presence: without status migrainosus Intractability: not intractable Qualified Code(s): G43.009 - Migraine without aura, not intractable, without status migrainosus Condition: Stable Prescriptions: New hydrochlorothiazide 25 mg tablet 25 mg PO DAILY Qty: 12 0RF No Action albuterol sulfate 2.5 mg /3 mL (0.083 %) solution for nebulization 2.5 mg INHALATION Q6H 0RF drospirenone-ethinyl estradiol [MARJORIE (28)] 3-0.02 mg tablet 1 tab PO ONCE Qty: 84 3RF Xeljanz 10 mg tablet 10 mg PO DAILY 0RF medical marijuana gunnies .Route 0RF Rx Instructions: once daily albuterol sulfate 90 mcg/actuation HFA aerosol inhaler 1 inh inhalation QID PRN (Reason: shortness of breath or wheezing) Qty: 8.5 4RF azithromycin 250 mg tablet See Rx Instructions PO .COMPLEX Qty: 6 0RF Rx Instructions: take 500 mg today (day 1), then 250 mg for 4 days (days 2-5) PO citalopram 20 mg tablet See Rx Instructions .ROUTE .COMPLEX Qty: 90 2RF Dose Instruction: Take 1 tablet by mouth once daily Rx Instructions: Take 1 tablet by mouth once daily loratadine-pseudoephedrine [Claritin-D 24 Hour] 10-240 mg tablet extended release 24 hr 1 tab PO DAILY PRN (Reason: allergy symptoms) Qty: 30 2RF Discharge Orders: Discharge ED (Routine); Ordered 09/21/21 Ordered By: Anthony Tran Referrals: Ady Monk MD [Primary Care Provider] - Discharge Diet: Regular Discharge Activity: Increase activity as tolerated Patient Instructions: Migraine Headache (ED), Hypertension (ED) Activity Restrictions/Additional Instructions: Follow-up with medical provider as directed in the next 3 to 5 days for reevaluation. Check your blood pressures at home at least 2-3 times a day and record them so you can show PCP recent blood pressure readings. Continue taking all home medications as previously prescribed. Take [id number] Tylenol, Excedrin or ibuprofen per bottle instruction as needed for any reoccurring headaches. Return to the ER or your medical provider if condition worsens. Please read and understand discharge instructions. Thank you for choosing [facility] for your healthcare needs today. Please realize this is an emergency room and that we are providing you with a medical screening exam and this may not be complete and all inclusive of all the testing and or work up that you may need to determine your ailment or severity of your illness. It is very important that you follow up as instructed or that you return to the Emergency Department should you have concerns or if your condition changes or worsens in any way. Coding Level of Care Code ED Cash Poster for Cassius Fwd Exam Comprehensive
[2021-09-20 23:00] VITALS: BP 181/111; PULSE 83; RESP 12; O2SAT 100
[2021-09-20] MEDS: sodium chloride 0.9% 500 ML 999 ML IV (23:18)
[2021-09-20] MEDS: diphenhydrAMINE 50 mg/mL SDV 1mL 25 MG IVP (23:18)
[2021-09-20] MEDS: metoclopramide 5 mg/mL SDV 2 mL 10 MG IVP (23:19)
[2021-09-20 23:20] LABS: Basophils % 0.3 %; Eosinophils % 0.3 %; Hematocrit 37.3 % (37.0-47.0); Hemoglobin 12.5 g/dL (11.5-15.3); Lymphocytes # 2.3 10^3/uL (0.8-4.8); Mean Corpuscular HGB Conc 33.5 g/dL (30.0-36.0); Mean Corpuscular Hemoglobin 26.8 pg (28.0-34.0); Mean Corpuscular Volume 79.9 fl (81-99); Mean Platelet Volume 9.1 fL (7.4-10.4); Monocytes # 0.7 10^3/uL (0.2-0.9); Monocytes % 6.6 %; Neutrophils # 7.97 10^3/uL (1.8-7.7); Neutrophils % 71.4 %; Nucleated Red Blood Cells % 0 %; Platelet Count 387 10^3/cmm (130-400); Red Blood Count 4.67 10^6/uL (4.1-5.3); Red Cell Distribution Width 14.6 % (12.1-15.1); White Blood Count 11.1 10^3/uL (4.0-10.0)
[2021-09-20] MEDS: ketorolac 30 mg/mL INJ IVP (23:20)
[2021-09-20] MEDS: dexamethasone 10 mg/mL INJ IVP (23:21)
[2021-09-21] VITALS: BP 186/123; PULSE 85; RESP 12; O2SAT 99
[2021-09-21 00:01] LABS: Alanine Aminotransferase 37 U/L (0-33); Albumin Level 4.5 g/dL (3.5-5.2); Alkaline Phosphatase 59 IU/L (35-105); Anion Gap 19.9 (5-19); Aspartate Amino Transferase 41 U/L (0-32); Blood Urea Nitrogen 10 mg/dL (6-20); Calcium 9.4 mg/dL (8.5-10.5); Carbon Dioxide 21 mmol/L (22-29); Chloride 100 mmol/L (98-107); Globulin 3.5 g/dL (1.3-4.6); Glomerular Filtration Rate 145.9 mL/min (90-130); Glucose 82 mg/dL (65-115); Osmolality Calculated 282 mOsm/kg (285-295); Potassium 3.9 mmol/L (3.5-5.1); Sodium 137 mmol/L (136-145); Total Bilirubin 0.4 mg/dL (0.15-1.2)
[2021-09-21 00:39] VITALS: BP 177/111
[2021-09-21] MEDS: cloNIDine 0.1 mg Tablet PO (00:39)
[2021-09-21 00:59] VITALS: BP 185/127; PULSE 85; RESP 13; O2SAT 97
[2021-09-21 01:00] VITALS: BP 181/121; PULSE 87; RESP 9; O2SAT 97
[2021-09-21] MEDS: hyDRALAzine 25 mg Tablet PO (01:07)
[2021-09-21 01:30] VITALS: BP 170/120; PULSE 93; RESP 10; O2SAT 96
[2021-09-21 02:12] VITALS: BP 147/98; PULSE 99; RESP 17; O2SAT 97
== END 2021-09-21 02:09 | disposition home or self-care (01) ==
PROVIDERS: Emergency Provider Physician Assistant; PCP Family Medicine
DX: G43.009 Migraine without aura, not intractable, without status migrainosus (principal); I16.0 Hypertensive urgency
CPT/HCPCS: 70450; 80053; 85025; 96361; 96374; 96375; 99285; J1100; J1200; J1885; J2765; J7040

== ENCOUNTER → 2021-09-28 16:15 | Outpatient (BNVA) | payer BC, SELFPAY | PROVIDERS: PCP Family Medicine; Visit Provider Family Medicine | DX: G43.909 Migraine, unspecified, not intractable, without status migrainosus (principal); I16.0 Hypertensive urgency; J30.9 Allergic rhinitis, unspecified | CPT/HCPCS: 84439; 84443; 86140 ==

== ENCOUNTER → 2022-04-02 08:42 | Outpatient (BNVA) | payer BC, SELFPAY | PROVIDERS: PCP Family Medicine; Visit Provider Dermatology | DX: Z51.81 Encounter for therapeutic drug level monitoring (principal) | CPT/HCPCS: 81025 ==

== ENCOUNTER → 2022-07-21 14:05 | Outpatient (BNVA) | payer BC, SELFPAY | PROVIDERS: PCP Family Medicine; Visit Provider Internal Medicine | DX: H20.9 Unspecified iridocyclitis (principal) | CPT/HCPCS: 80076; 81025; 85025 ==

== ENCOUNTER → 2022-07-27 11:18 | Outpatient (BNVA) | payer BC, SELFPAY | PROVIDERS: PCP Family Medicine; Visit Provider Family Medicine | DX: Z34.90 Encounter for supervision of normal pregnancy, unspecified, unspecified trimester (principal) | CPT/HCPCS: 80053; 80074; 84144; 84443; 84702; 85025; 86592; 86706; 86762; 86803; 86850; 86900; 87806 ==

== ENCOUNTER 2022-09-19 10:39 | Observation (INO) | payer BC, SELFPAY ==
[2022-09-19 10:51] VITALS: BP 132/85; TEMP 36.8
--- NOTE | 2022-09-19 11:08 | USR_ITS ---
PROCEDURE INFORMATION: Exam: US , Limited Exam date and time: 09/19/2022 11:59 AM Age: 32 years old Clinical indication: Lmp or gestational age (in weeks): 12w; Antepartum complications; Bleeding; ; Additional info: 12 weeks with spotting and abd cramping LABS AND CLINICAL REPORTS: Last menstrual period start date: 07/24/2022 Gestational age (Established): 8 w 1 d Estimated due date (Established): 04/30/2023 TECHNIQUE: Imaging protocol: Real-time ultrasound of the maternal uterus with image documentation. Exam focused on the clinical indication. COMPARISON: US transvaginal [id number] 11/04/2020 1:05 PM FINDINGS: Gestation: Single intrauterine with crown-rump length corresponding to 12 week 4 day . heart rate: Within normal range estimated at 176 bpm Placenta: Placenta is located anteriorly. Amniotic fluid: Amniotic fluid volume appears adequate. US/US OB limited [id number] IMPRESSION: Single viable intrauterine estimated at 12 weeks 4 days station all age.
[2022-09-19 11:22] LABS: Basophils % 0.2 %; Eosinophils % 0.1 %; Hematocrit 39.2 % (37.0-47.0); Hemoglobin 12.7 g/dL (11.5-15.3); Lymphocytes # 1.3 10^3/uL (0.8-4.8); Lymphocytes % 11.5 %; Mean Corpuscular HGB Conc 32.4 g/dL (30.0-36.0); Mean Corpuscular Hemoglobin 25.5 pg (28.0-34.0); Mean Corpuscular Volume 78.7 fl (81-99); Mean Platelet Volume 8.7 fL (7.4-10.4); Monocytes # 0.6 10^3/uL (0.2-0.9); Neutrophils # 9.32 10^3/uL (1.8-7.7); Neutrophils % 82.8 %; Nucleated Red Blood Cells % 0 %; Platelet Count 343 10^3/cmm (130-400); Red Blood Count 4.98 10^6/uL (4.1-5.3); Red Cell Distribution Width 13.7 % (12.1-15.1); White Blood Count 11.3 10^3/uL (4.0-10.0)
--- NOTE | 2022-09-19 11:24 | W.ED.PREGNAN ---
HPI - General: Chief complaint: Abdominal Pain Stated complaint: 12 weeks , cramping, n/v Time Seen by Provider: 09/19/22 10:53 History of Present Illness: Patient is a G1 12-week female who comes to the ED with abdominal cramping and spotting. Patient says approximately 3 days ago she started developing nausea and vomiting and has been having trouble keeping any food or fluids down. Endorses episodes of diarrhea as well over the past couple days. This morning she woke up and she was starting to have some abdominal cramping pain and also some very light scant vaginal spotting. Denies any heavy bleeding and denies bleeding through any pads. Denies fever, dysuria or hematuria. Patient also suffers with depression and anxiety and is currently on citalopram while she is . She saw her OB doctor last week and she talked about her worsening symptoms and thoughts of SI and they increased her dose of citalopram. Patient says here in the ED she still having increased suicidal thoughts but denies any plan. Denies any past suicidal attempts. Denies any drug or alcohol use. Associated symptoms: Reports nausea and vomiting; Deny abdominal pain, dysuria or headache(s) Review of Systems Const: Denies: fever(s), chills or fatigue Eyes: Denies: change in vision or eye discomfort ENMT: Denies: throat pain, odynophagia, nasal discharge or nasal congestion Card: Denies: chest pain, palpitations, edema, swelling of feet/ankles, dyspnea on exertion or orthopnea Resp: Denies: dyspnea, productive cough or non-productive cough GI: Reports: nausea, vomiting and diarrhea; Denies: abdominal pain, constipation or hematochezia : Reports: vaginal bleeding; Denies: flank pain, dysuria or hematuria Musc: Denies: neck pain, back pain or extremity swelling Skin/Breast: Denies: rash or new lesions Neuro: Denies: headache(s), numbness in extremities or weakness in extremities Psych: Reports: anxiety, depression and suicidal ideation [facility] ED PFSH: Medical History Acne Had pretty severe acne and was taking Accutane and other treatment under territory outside sales manager Dr. Harden in [facility] in [place]. Her last treatment was in May or June 2019. Not currently on any medication other than Lorie Anxiety as acute reaction to exceptional stress Since her in November 2018 of her myocardial infarction she has been on medication and seeing the therapist Ms Bridges and states that symptoms are well controlled with these interventions. Asthma States that she has had asthma as a child. Now uses her inhaler a couple of times a year No pertinent past medical history Denies diabetes, hypertension, seizures, DVT/PE. Her primary care doctor is Dr. Monk. 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 She was started on Xeljanz in June 2020 managed by her solder sprayer Dr. Ni in [facility] Surgical History H/O removal of cyst Removal of right labial cyst; Done on 06/30/[address] Prieto at [facility]. Pathology showed inflammatory cyst and granulation tissue. S/P tonsillectomy 2013, denies problems with anesthesia S/P wisdom tooth extraction 2010 Family History Grandmother Heart disease Paternal great grandmother Hypertension maternal and paternal Breast cancer maternal, age at diagnosis unknown Mother Diabetes Hypertension Family/Other Thyroid condition cousin paternal aunt Breast cancer materna aunt, diagnosed in her 50s Denies family history of Cervical cancer Colon cancer Ovarian cancer DVT (deep venous thrombosis) Bleeding disorder Pulmonary embolism Uterine cancer Social History Smoking and tobacco status: never smoked Alcohol intake: never Substance/Drug Use: current Physical Exam Const: COMMON NORMALS: no acute distress, patient oriented x3 and alert HENMT: COMMON NORMALS: normocephalic HEAD & SCALP: normocephalic MOUTH: Normal oral and palatal mucosa present THROAT: posterior oropharynx normal and uvula midline Neck/C-Spine: COMMON NORMALS: supple GENERAL: Yes normal visual inspection Resp: COMMON NORMALS: normal respiratory effort, No retractions, No use of accessory muscles and clear to auscultation bilaterally AUSCULTATION: clear to auscultation bilaterally Cardio: COMMON NORMALS: regular rate, regular rhythm, S1 normal heart sound present, S2 normal heart sound present, No gallops present (Cardio), No clicks present (Cardio), No murmurs present (Cardio) and Peripheral pulses 2+ throughout RATE: regular rate RHYTHM: regular rhythm HEART SOUNDS: S1 normal heart sound present and S2 normal heart sound present PERIPHERAL PULSES: Peripheral pulses 2+ throughout GI: COMMON NORMALS: Normal to inspection, nondistended, normoactive bowel sounds present, Soft to palpation, non-tender and no masses PALPATION: Yes Soft to palpation : COMMON NORMALS: Yes no CVA tenderness BLADDER/KIDNEY EXAM: Yes no CVA tenderness Back/Pelvis: COMMON NORMALS: no CVA tenderness Extremity: COMMON NORMALS: normal to inspection Neuro: COMMON NORMALS: patient oriented x3 SENSORIUM/ORIENTATION: Yes alert GAIT: Yes Normal gait present Psych: THOUGHT CONTENT: Yes Suicidality present Skin: GENERAL SKIN EXAM: dry skin Course Vital Signs: Vital signs: Vital Signs Temperature 98.3 F 09/19/22 14:50 Pulse Rate 97 09/19/22 14:50 Respiratory Rate 19 H 09/19/22 14:50 Blood Pressure 147/94 09/19/22 14:50 Pulse Oximetry 98 09/19/22 14:50 Oxygen Delivery Me thod Room Air 09/19/22 14:50 MDM - OB/Uterine Contractions Medical Decision Making Patient is a G1 12-week female who comes to the ED with abdominal cramping and spotting. Patient says approximately 3 days ago she started developing nausea and vomiting and has been having trouble keeping any food or fluids down. Endorses episodes of diarrhea as well over the past couple days. This morning she woke up and she was starting to have some abdominal cramping pain and also some very light scant vaginal spotting. Denies any heavy bleeding and denies bleeding through any pads. Denies fever, dysuria or hematuria. Patient also suffers with depression and anxiety and is currently on citalopram while she is . She saw her OB doctor last week and she talked about her worsening symptoms and thoughts of SI and they increased her dose of citalopram. Patient says here in the ED she still having increased suicidal thoughts but denies any plan. Denies any past suicidal attempts. Denies any drug or alcohol use. Vital stable. Patient appears nontoxic in no acute distress or pain. Patient does endorse having suicidal thoughts. Rest of her exam is benign. CBC and CMP are unremarkable. OB ultrasound shows single viable intrauterine at about 12 weeks in gestation. No other acute findings noted. I contacted Dr. Yan and told about patient case and how she is having suicidal thoughts. Dr. Yan agreed to have patient admitted into the NPU. Dr. Estrada was told about patient case and he place the admitting orders. Lab Data I reviewed the patient's lab results. 09/19/22 11:13 09/19/22 11:13 Radiology Impressions Obstetrics Ultrasound 09/19/22 11:08 IMPRESSION: Single viable intrauterine estimated at 12 weeks 4 days station all age. Laboratory Results WBC 11.3 10^3/uL (4.0-10.0) H 09/19/22 11:13 RBC 4.98 10^6/uL (4.1-5.3) 09/19/22 11:13 Hgb 12.7 g/dL (11.5-15.3) 09/19/22 11:13 Hct 39.2 % (37.0-47.0) 09/19/22 11:13 MCV 78.7 fl (81-99) L 09/19/22 11:13 MCH 25.5 pg (28.0-34.0) L 09/19/22 11:13 MCHC 32.4 g/dL (30.0-36.0) 09/19/22 11:13 RDW 13.7 % (12.1-15.1) 09/19/22 11:13 Plt Count 343 10^3/cmm (130-400) 09/19/22 11:13 MPV 8.7 fL (7.4-10.4) 09/19/22 11:13 Neut % (Auto) 82.8 % 09/19/22 11:13 Lymph % (Auto) 11.5 % 09/19/22 11:13 [place] % (Auto) 5.0 % 09/19/22 11:13 Eos % (Auto) 0.1 % 09/19/22 11:13 Baso % (Auto) 0.2 % 09/19/22 11:13 Neut # (Auto) 9.32 10^3/uL (1.8-7.7) H 09/19/22 11:13 Lymph # (Auto) 1.3 10^3/uL (0.8-4.8) 09/19/22 11:13 [place] # (Auto) 0.6 10^3/uL (0.2-0.9) 09/19/22 11:13 Eos # (Auto) 0.0 10^3/uL (0.0-0.8) 09/19/22 11:13 Baso # (Auto) 0.0 10^3/uL (0.0-0.1) 09/19/22 11:13 Nucleated RBC % (auto) 0 % 09/19/22 11:13 Nucleated RBCs # 0.0 /100WBC 09/19/22 11:13 Sodium 134 mmol/L (136-145) L 09/19/22 11:13 Potassium 3.8 mmol/L (3.5-5.1) 09/19/22 11:13 Chloride 101 mmol/L (98-107) 09/19/22 11:13 Carbon Dioxide 19 mmol/L (22-29) L 09/19/22 11:13 Anion Gap 17.8 (5-19) 09/19/22 11:13 BUN 5 mg/dL (6-20) L 09/19/22 11:13 Creatinine 0.4 mg/dL (0.5-0.9) L 09/19/22 11:13 GFR Calculation 187.4 mL/min (90-130) H 09/19/22 11:13 Glucose 91 mg/dL (65-115) 09/19/22 11:13 Calculated Osmolality 275 mOsm/kg (285-295) L 09/19/22 11:13 Calcium 9.5 mg/dL (8.5-10.5) 09/19/22 11:13 Total Bilirubin 0.5 mg/dL (0.15-1.2) 09/19/22 11:13 AST 12 U/L (0-32) 09/19/22 11:13 ALT 11 U/L (0-33) 09/19/22 11:13 Alkaline Phosphatase 60 U/L (35-105) 09/19/22 11:13 Total Protein 8.0 g/dL (6.6-8.7) 09/19/22 11:13 Albumin 3.9 g/dL (3.5-5.2) 09/19/22 11:13 Globulin 4.1 g/dL (1.3-4.6) 09/19/22 11:13 Ser , Semi-Qnt 31372.00 mIU/mL 09/19/22 11:13 Urine Color Dark yellow (Yellow) 09/19/22 11:24 Urine Appearance Hazy (CLEAR) A 09/19/22 11:24 Urine pH 6.5 (5-7) 09/19/22 11:24 Ur Specific [place] 1.015 (1.005-1.030) 09/19/22 11:24 Urine Protein Neg (Negative) 09/19/22 11:24 Urine Glucose (UA) Norm (Normal) 09/19/22 11:24 Urine Ketones 3+ (Negative) H 09/19/22 11:24 Urine Blood Neg (Negative) 09/19/22 11:24 Urine Nitrate Negative (Negative) 09/19/22 11:24 Urine Bilirubin 1+ (Negative) H 09/19/22 11:24 Urine Urobilinogen 4 mg/dL (Negative) H 09/19/22 11:24 Ur Leukocyte Esterase 2+ (Negative) H 09/19/22 11:24 Urine RBC None /hpf (0-2) 09/19/22 11:24 Urine WBC 10-15 /hpf (0-5) H 09/19/22 11:24 Ur Squamous Epith Cells 10-15 /hpf (0-5) H 09/19/22 11:24 Amorphous Sediment Not Reportable 09/19/22 11:24 Urine Bacteria 2+ /hpf (NONE) H 09/19/22 11:24 Salicylates 0.6 mg/dL (3-10) L 09/19/22 11:13 Urine Opiates Screen Negative ng/mL (Negative) 09/19/22 11:24 Acetaminophen < 5.0 ug/mL (10-30) L 09/19/22 11:13 Ur Barbiturates Screen Negative ng/mL (Negative) 09/19/22 11:24 Ur Phencyclidine Scrn Negative ng/mL (Negative) 09/19/22 11:24 Ur Amphetamines Screen Negative ng/mL (Negative) 09/19/22 11:24 U Benzodiazepines Scrn Positive ng/mL (Negative) H 09/19/22 11:24 Urine Cocaine Screen Negative ng/mL (Negative) 09/19/22 11:24 U Marijuana (THC) Screen Negative ng/mL (Negative) 09/19/22 11:24 Ethyl Alcohol < 10 mg/dL (0-10) 09/19/22 11:13 Discharge Plan Discharge Patient Disposition: Admitted As Inpatient Admit Provider: Issa Yan Clinical Impression: Suicidal ideation, Vaginal bleeding in Condition: Stable Coding Level of Care Code ED Night Court Magistrate for Cassius Emerson
[2022-09-19 11:45] LABS: Alanine Aminotransferase 11 U/L (0-33); Albumin Level 3.9 g/dL (3.5-5.2); Alkaline Phosphatase 60 U/L (35-105); Anion Gap 17.8 (5-19); Aspartate Amino Transferase 12 U/L (0-32); Blood Urea Nitrogen 5 mg/dL (6-20); Calcium 9.5 mg/dL (8.5-10.5); Carbon Dioxide 19 mmol/L (22-29); Chloride 101 mmol/L (98-107); Globulin 4.1 g/dL (1.3-4.6); Glomerular Filtration Rate 187.4 mL/min (90-130); Glucose 91 mg/dL (65-115); Osmolality Calculated 275 mOsm/kg (285-295); Potassium 3.8 mmol/L (3.5-5.1); Salicylate 0.6 mg/dL (3-10); Sodium 134 mmol/L (136-145); Total Bilirubin 0.5 mg/dL (0.15-1.2)
[2022-09-19 11:46] LABS: Acetaminophen < 5.0 ug/mL (10-30); Alcohol Level < 10 mg/dL (0-10)
[2022-09-19 11:46] LABS: Amphetamines Screen Urine Negative (Negative); Barbiturates Screen Urine Negative (Negative); Benzodiazepines Screen Urine Positive (Negative); Cocaine Screen Urine Negative (Negative); Opiate Screen Urine Negative (Negative); PCP Screen Urine Negative (Negative); THC Screen Urine Negative (Negative)
[2022-09-19 11:49] LABS: Add Urine Microscopic? YES; Bilirubin Urine 1+ (Negative); Blood Urine Neg (Negative); Glucose Urine UA Norm (Normal); Ketones Urine 3+ (Negative); Leukocyte Esterase Urine 2+ (Negative); Nitrate Urine Negative (Negative); Protein Urine Neg (Negative); Specific Gravity, Urine 1.015 (1.005-1.030); Urine Appearance Hazy (CLEAR); Urine Color Dark Yellow (Yellow); Urobilinogen Urine 4 mg/dL (Negative); pH Urine 6.5 (5-7)
[2022-09-19 11:50] LABS: Add Urine Culture? No; Bacteria Urine 2+ /hpf
[2022-09-19] MEDS: sodium chloride 0.9% 1,000 ML 999 ML IV (11:59)
[2022-09-19] MEDS: ondansetron 2 mg/ML SDV 2 mL 4 MG IVP (11:59)
[2022-09-19 12:51] VITALS: BP 139/81; PULSE 78; RESP 18; O2SAT 98
--- NOTE | 2022-09-19 14:00 | PC.PHAR ---
pt states she takes care of her own medications-pt states when she found out she was that she stop taking xeljanz xr 11mg daily filled 05/26/22 30d/s-pt states she is only taking the medications entered
[2022-09-19 14:50] VITALS: BP 147/94; PULSE 97; RESP 19; TEMP 36.8; O2SAT 98
--- NOTE | 2022-09-19 16:11 | PC.NURSE ---
PT ARRIVED TO ED FOR POSSIBLE MISCARRIAGE. PT WAS FOUND TO NOT BE HAVING A MISCARRIAGE AND HAS A VIABLE 12 WEEK OLD . HOWEVER, DURING ASSESSMENT PT ENDORSED THOUGHTS OF HURTING HERSELF. UPON ADMIT TO THE UNIT PT WAS SOBBING STATING I JUST WANT TO GO HOME, I KNOW IM NOT GOING TO DO IT. IM NOT GOING TO HURT MYSELF. PT STATES THAT HER DOCTOR LOWERED HER DEPRESSION MEDICATION WHEN FOUND OUT ABOUT THE . PT STATED THAT HER DOCTOR JUST RECENTLY BROUGHT HER DEPRESSION MEDICATION BACK UP TO USUAL DOSAGE A COUPLE DAYS AGO. PT CONTINUES TO BE TEARFUL THROUGHOUT ASSESSMENT.
--- NOTE | 2022-09-19 17:47 | PM.CONSULT ---
Providers/Reason For Consult Consulting Physician/Specialty*: Internal Medicine Reason for Consult*: Abdominal Cramps Requesting Physician: Dr Yan Attending Physician: Issa Yan MD Primary Care Provider: Ady Monk MD History of Present Illness History of Present Illness Jeimy Knutson is a 32 year old female with a past medical history significant for anxiety and asthma who is currently admitted to NPU for suicidal ideation. She also reports associated symptoms of abdominal cramping nausea, vomiting and light vaginal spotting x3 days. She describes the pain is severe. She is crying on exam. She rates it 10 out of 10. She also endorses diarrhea as well over the last several days. She is currently 12 weeks . In the ED, ultrasound showed a viable fetus. UA consistent with a UTI. Review of Systems Narrative: A complete review of systems was obtained and is negative except as stated in HPI. Medications/Allergies Home Medications Medication Instructions Recorded Confirmed Last Taken Type albuterol sulfate 2.5 mg/3 mL 2.5 mg inhalation Q6H PRN 03/19/19 09/19/22 Unknown History (0.083 %) solution for nebulization Shortness Of Breath albuterol sulfate 90 mcg/actuation 1 puff inhalation QID PRN 09/19/22 09/19/22 Unknown History aerosol inhaler shortness of breath or wheezing citalopram 20 mg tablet 20 mg PO BEDTIME 09/19/22 09/19/22 09/18/22 History vit no.95-ferrous 1 tab PO BEDTIME 09/19/22 09/19/22 09/18/22 History fumarate 28 mg-folic acid 800 mcg tablet ( Multivitamins) propranolol 20 mg tablet 20 mg PO BID PRN Anxiety 09/19/22 09/19/22 Unknown History Allergies Allergy/AdvReac Type Severity Reaction Status Date / Time amoxicillin Allergy hives--Can Verified 09/19/22 14:00 take Keflex Penicillins Allergy Unknown Verified 09/19/22 14:00 Sulfa (Sulfonamide Allergy hives Verified 09/19/22 14:00 Antibiotics) sulfamethoxazole Allergy hives Verified 09/19/22 14:00 [From Bactrim] trimethoprim [From Bactrim] Allergy hives Verified 09/19/22 14:00 PFSH Acute PFSH: Medical History Acne Had pretty severe acne and was taking Accutane and 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 Her last treatment was in May or June 2019. Not currently on any medication other than Lorie Anxiety as acute reaction to exceptional stress Since her in November 2018 of her myocardial infarction she has been on medication and seeing the therapist Ms Bridges and states that symptoms are well controlled with these interventions. Asthma States that she has had asthma as a child. Now uses her inhaler a couple of times a year No pertinent past medical history Denies diabetes, hypertension, seizures, DVT/PE. Her primary care doctor is Dr. Monk. 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 Ni in [facility] Surgical History H/O removal of cyst Removal of right labial cyst; Done on 06/30/[address] Prieto at [facility]. Pathology showed inflammatory cyst and granulation tissue. S/P tonsillectomy 2013, denies problems with anesthesia S/P wisdom tooth extraction 2010 Family History Grandmother Heart disease Paternal great grandmother Hypertension maternal and paternal Breast cancer maternal, age at diagnosis unknown Mother Diabetes Hypertension Family/Other Thyroid condition cousin paternal aunt Breast cancer materna aunt, diagnosed in her 50s Denies family history of Cervical cancer Colon cancer Ovarian cancer DVT (deep venous thrombosis) Bleeding disorder Pulmonary embolism Uterine cancer Social History Smoking and tobacco status: never smoked Alcohol intake: never Substance/Drug Use: current Vitals/I&O/Wt Last Vital Signs Temp 98.3 F 09/19/22 14:50 Pulse 97 09/19/22 14:50 Resp 19 H 09/19/22 14:50 BP 147/94 09/19/22 14:50 Pulse Ox 98 09/19/22 14:50 O2 Del Method Room Air 09/19/22 14:50 Weight last 48 hrs Weight 90.718 kg Physical Exam Narrative: General: Patient is awake and alert. Head: Normocephalic. Atraumatic. EOM intact. Neck: No JVD. Cardiovascular: RRR. No gallops. No murmurs. No peripheral edema. Lungs: Clear to auscultation, no use of accessory muscles, no crackles or wheezes. Skin: No jaundice. No rashes. Abdomen: Normal bowel sounds, abdomen soft and nontender. Genito Urinary: Genital exam not performed since complaints not related. Rectal: Rectal exam not performed since no symptoms indicated blood loss. Extremities: No cyanosis or clubbing. Musculoskeletal: 5/5 strength, normal range of motion, no swollen or erythematous joints. Neurological: Moves all 4 extremities. No myoclonus. Data 09/19/22 11:13 09/19/22 11:13 A&P Assessment and plan (1) Lower abdominal pain: Suspect related to UTI Treat infection Tylenol as needed Supportive care (2) UTI (urinary tract infection): Start nitrofuratoin for UTI Follow up culture (3) Nausea and vomiting: Secondary to UTI Zofran Supportive care (4) : With associated spotting 12 weeks OB ultrasound with 12 weeks 4-day single viable intrauterine If worsens, obtain OB consult (5) Suicidal ideation: Management per primary Plan As above Consult Attestations Medical Necessity Statement: Per primary Coding Level of Care Code Acute Code for Chg Fwd Diagnoses Lower abdominal pain R10.30 UTI (urinary tract infection) N39.0 Nausea and vomiting R11.2 Z34.90 Suicidal ideation R45.851
--- NOTE | 2022-09-19 18:11 | USR_ITS ---
PROCEDURE INFORMATION: Exam: US Retroperitoneal; Complete; Kidneys and Bladder Exam date and time: 09/19/2022 8:11 PM Age: 32 years old Clinical indication: Abdominal pain; ; Additional info: UTI pregnanccy, severe pain TECHNIQUE: Imaging protocol: Real-time ultrasound of the retroperitoneum with image documentation. Complete exam focused on the kidneys and bladder. COMPARISON: CT abdomen pelvis w con* [id number] 04/12/2021 7:35 PM FINDINGS: Right kidney: Right kidney measures 12.1 cm in length. Normal renal echotexture. No hydronephrosis. No cyst, mass, or calculus demonstrated. Left kidney: Left kidney measures 12.0 cm in length. Normal renal echotexture. No hydronephrosis. No cyst, mass, or calculus demonstrated. Urinary bladder: Urinary bladder appears morphologically normal. US/US renal BI* [id number] IMPRESSION: Unremarkable renal and bladder ultrasound examination.
[2022-09-19 18:19] VITALS: RESP 18; O2SAT 98
[2022-09-19] MEDS: nitrofurantoin SR (BID) 100 mg Capsule PO (18:19)
[2022-09-19] MEDS: oxyCODONE-APAP 5-325 mg Tablet 1 TAB PO (18:19)
[2022-09-19] MEDS: citalopram 20 mg Tablet PO (20:02)
[2022-09-19] MEDS: prenatal vitamin Capsule 1 CAP PO (20:02)
[2022-09-19 21:05] VITALS: BP 120/71; PULSE 70; RESP 18; TEMP 36.8; O2SAT 95
[2022-09-20 06:00] VITALS: BP 142/82; PULSE 67; RESP 16; O2SAT 95
--- NOTE | 2022-09-20 08:00 | P.NPUHP_ITS ---
Providers/Chief Complaint Admitting Physician: Issa Yan MD Primary Care Provider: Ady Monk MD Chief Complaint: 12 weeks , cramping, n/v HPI NPU History of Present Illness Jeimy Knutson is a 32 year old female who presented to the emergency department with the following report: Chief complaint: Abdominal Pain Stated complaint: 12 weeks , cramping, n/v Time Seen by Provider: 09/19/22 10:53 History of Present Illness: Patient is a G1 12-week female who comes to the ED with abdominal cramping and spotting. Patient says approximately 3 days ago she started developing nausea and vomiting and has been having trouble keeping any food or fluids down. Endorses episodes of diarrhea as well over the past couple days. This morning she woke up and she was starting to have some abdominal cramping pain and also some very light scant vaginal spotting. Denies any heavy bleeding and denies bleeding through any pads. Denies fever, dysuria or hematuria. Patient also suffers with depression and anxiety and is currently on citalopram while she is . She saw her OB doctor last week and she talked about her worsening symptoms and thoughts of SI and they increased her dose of citalopram. Patient says here in the ED she still having increased suicidal thoughts but denies any plan. Denies any past suicidal attempts. Denies any drug or alcohol use. Associated symptoms: Reports nausea and vomiting; Deny abdominal pain, dysuria or headache(s) She was admitted to the neuropsychiatric unit for definitive treatment of those issues. She presented today reporting that she did have some previous mental health treatment which is mostly secondary to the sudden of her . She reports that that was very traumatic and it was also from a sudden cardiac outcome which was consistent with a traumatic event from her childhood when a close cousin actively from a sudden cardiac event. She reports that was very overwhelming after they have been together for several years and she has been in treatment and been on medication more or less since then. But then recently she got remarried and found out that she was unexpectedly and so they decreased her medication but the last couple weeks she has begun to feel worse. She reports that just the other day they placed her medication back to the previous dose but that she was really struggling and came to the hospital. He was endorsing some ambivalence about coming into the hospital and had attempted to leave AMA yesterday but was the best to stay and be seen so that we can have a realistic consideration of whether she was safe to go. We discussed having team identify whether there are any risk factors in the home including guns etc. We discussed the risk benefits and alternatives of her being able to discharge on her current medication and she understood and agreed to proceed as is documented in this note. She denied any significant addiction issues, no developmental challenges or issues. Reviewed her psychosocial circumstances which include stable housing and stable economic situation. She does identify that he and her are willing to do whatever is necessary to make sure that she is safe and she has family supports that she was just feeling out of sorts yesterday. She does not have any children, no significant financial issues, no history of emotional, physical or site use and reports significant challenges with depression after the of her first . Meds NPU Home Medications Medication Instructions Recorded Confirmed Last Taken Type albuterol sulfate 2.5 mg/3 mL 2.5 mg inhalation Q6H PRN 03/19/19 09/22/22 Unknown History (0.083 %) solution for nebulization Shortness Of Breath albuterol sulfate 90 mcg/actuation 1 puff inhalation QID PRN 09/19/22 09/22/22 Unknown History aerosol inhaler shortness of breath or wheezing citalopram 20 mg tablet 20 mg PO BEDTIME 09/19/22 09/22/22 09/18/22 History vit no.95-ferrous 1 tab PO BEDTIME 09/19/22 09/22/22 09/18/22 History fumarate 28 mg-folic acid 800 mcg tablet ( Multivitamins) propranolol 20 mg tablet 20 mg PO BID PRN Anxiety 09/19/22 09/22/22 Unknown History ondansetron HCl 4 mg tablet 4 mg PO Q8H PRN nausea and 09/21/22 09/22/22 Unknown Rx vomiting #20 tabs Allergies Allergy/AdvReac Type Severity Reaction Status Date / Time amoxicillin Allergy hives--Can Verified 09/21/22 11:29 take Keflex Penicillins Allergy Unknown Verified 09/21/22 11:29 Sulfa (Sulfonamide Allergy hives Verified 09/21/22 11:29 Antibiotics) sulfamethoxazole Allergy hives Verified 09/21/22 11:29 [From Bactrim] trimethoprim [From Bactrim] Allergy hives Verified 09/21/22 11:29 PFSH NPU PFS: Medical History Acne Had pretty severe acne and was taking Accutane and 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 Her last treatment was in May or June 2019. Not currently on any medication other than Lorie Anxiety as acute reaction to exceptional stress Since her in November 2018 of her myocardial infarction she has been on medication and seeing the therapist Ms Quinnpablo and states that symptoms are well controlled with these interventions. Asthma States that she has had asthma as a child. Now uses her inhaler a couple of times a year No pertinent past medical history Denies diabetes, hypertension, seizures, DVT/PE. Her primary care doctor is Dr. Monk. 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 She was started on Xeljanz in June 2020 managed by her clinical writer Dr. Ni in [facility] Surgical History H/O removal of cyst Removal of right labial cyst; Done on 06/30/[address] Prieto at [facility]. Pathology showed inflammatory cyst and granulation tissue. S/P tonsillectomy 2013, denies problems with anesthesia S/P wisdom tooth extraction 2010 Family History Grandmother Heart disease Paternal great grandmother Hypertension maternal and paternal Breast cancer maternal, age at diagnosis unknown Mother Diabetes Hypertension Family/Other Thyroid condition cousin paternal aunt Breast cancer materna aunt, diagnosed in her 50s Denies family history of Cervical cancer Colon cancer Ovarian cancer DVT (deep venous thrombosis) Bleeding disorder Pulmonary embolism Uterine cancer Social History Smoking and tobacco status: never smoked Alcohol intake: never Substance/Drug Use: current Mental Status Exam MSE Comments: This is an obese white female, in hospital scrubs, with adequate grooming and eye contact. No abnormal movements, except for mild psychomotor retardation. Cooperative with exam in mild distress. Speech was normal rate and volume. Mood described as depressed, but better than yesterday; affect congruent. Thought process, organized. Thought content: patient denied any suicidal or homicidal ideation, there were no delusions reported or noted, patient denied any auditory or visual hallucinations. Attention, concentration, and memory appeared intact, but none were formally tested. Alert and oriented times three. Insight and judgment are fair. Impulse control is limited, but improving. Vitals/I&O/Wt Last Vital Signs Temp 98.2 F 09/19/22 21:05 Pulse 67 09/20/22 06:00 Resp 16 09/20/22 06:00 BP 142/82 09/20/22 06:00 Pulse Ox 95 09/20/22 06:00 O2 Del Method Room Air 09/19/22 14:50 09/19/22 09/20/22 09/20/22 22:59 06:59 14:59 Intake Total 1000 / 1000 Balance 1000 / 1000 Weight last 48 hrs Weight 90.718 kg Data NPU 09/19/22 11:13 09/19/22 11:13 A&P Assessment and plan (1) UTI (urinary tract infection): (2) Nausea and vomiting: (3) : (4) Suicidal ideation: (5) PTSD (post-traumatic stress disorder): (6) MDD (major depressive disorder), recurrent episode: Plan This is a 32-year-old, white female, with history of mental health issues going back to some lifetime trauma with previous treatment who presents having had some suicidal thoughts but feeling better now with recent med change.. 1. Continue current medication. 2. Continue q-15-minute checks for safety. 3. Encourage individual, group, and milieu therapy. 4. Voluntary patient requesting discharge. We will get collateral information and make sure safety and appointments are addressed prior to discharge.? Involuntary Hold Information 96 Hour Hold: 96 Hour Involuntary Admission: No Attestations NPU Medical Necessity Statement*: Inpatient hospitalization is medically necessary and the clinically appropriate intervention, at this time. We will monitor medications and make changes as indicated. However patient voluntary and desires to discharge. Coding Level of Care Code Acute Code for Chg Fwd Diagnoses UTI (urinary tract infection) N39.0 Nausea and vomiting R11.2 Z34.90 Suicidal ideation R45.851 PTSD (post-traumatic stress disorder) F43.10 MDD (major depressive disorder), recurrent episode F33.9
[2022-09-20] MEDS: nitrofurantoin SR (BID) 100 mg Capsule PO (08:26)
--- NOTE | 2022-09-20 11:01 | PC.NURSE ---
At 0900, this nurse called OB and talked to Inna. I asked her to send somebody down to the unit to doppler patient's FHTs. Inna said that she would let somebody know to come down to do this.
--- NOTE | 2022-09-20 13:06 | W.PM.NPUDCS ---
Diagnoses at Discharge Discharge Diagnosis (1) UTI (urinary tract infection): Status: Acute (2) Nausea and vomiting: Status: Acute (3) : Status: Acute (4) Suicidal ideation: Status: Resolved (5) PTSD (post-traumatic stress disorder): Status: Acute (6) MDD (major depressive disorder), recurrent episode: Status: Acute Reason for Visit Reason for Visit: 12 weeks , cramping, n/v Brief History: History of Present Illness Jeimy Knutson is a 32 year old female who presented to the emergency department with the following report: Chief complaint: Abdominal Pain Stated complaint: 12 weeks , cramping, n/v Time Seen by Provider: 09/19/22 10:53 History of Present Illness: Patient is a G1 12-week female who comes to the ED with abdominal cramping and spotting. Patient says approximately 3 days ago she started developing nausea and vomiting and has been having trouble keeping any food or fluids down. Endorses episodes of diarrhea as well over the past couple days. This morning she woke up and she was starting to have some abdominal cramping pain and also some very light scant vaginal spotting. Denies any heavy bleeding and denies bleeding through any pads. Denies fever, dysuria or hematuria. Patient also suffers with depression and anxiety and is currently on citalopram while she is . She saw her OB doctor last week and she talked about her worsening symptoms and thoughts of SI and they increased her dose of citalopram. Patient says here in the ED she still having increased suicidal thoughts but denies any plan. Denies any past suicidal attempts. Denies any drug or alcohol use. Associated symptoms: Reports nausea and vomiting; Deny abdominal pain, dysuria or headache(s) She was admitted to the neuropsychiatric unit for definitive treatment of those issues. She presented today reporting that she did have some previous mental health treatment which is mostly secondary to the sudden of her . She reports that that was very traumatic and it was also from a sudden cardiac outcome which was consistent with a traumatic event from her childhood when a close cousin actively from a sudden cardiac event. She reports that was very overwhelming after they have been together for several years and she has been in treatment and been on medication more or less since then. But then recently she got remarried and found out that she was unexpectedly and so they decreased her medication but the last couple weeks she has begun to feel worse. She reports that just the other day they placed her medication back to the previous dose but that she was really struggling and came to the hospital. He was endorsing some ambivalence about coming into the hospital and had attempted to leave AMA yesterday but was the best to stay and be seen so that we can have a realistic consideration of whether she was safe to go. We discussed having team identify whether there are any risk factors in the home including guns etc. We discussed the risk benefits and alternatives of her being able to discharge on her current medication and she understood and agreed to proceed as is documented in this note. She denied any significant addiction issues, no developmental challenges or issues. Reviewed her psychosocial circumstances which include stable housing and stable economic situation. She does identify that he and her are willing to do whatever is necessary to make sure that she is safe and she has family supports that she was just feeling out of sorts yesterday. She does not have any children, no significant financial issues, no history of emotional, physical or site use and reports significant challenges with depression after the of her first . Hospital Course Hospital Course She slowly acclimated to the individual, group and milieu therapies provided. She presented with emotional dysregulation. She is 12 weeks and was having some significant emotional challenges having had her Celexa dropped to 10 mg daily. Her outpatient doctors recently increased it back to 20 mg daily but she was having some suicidal thoughts and came to the hospital. She very quickly got her bearings and was wanting to go home to be with exam. We had no plans to make any changes in the medication as this dose had been good for her for about 4 to 5 years until it was dropped recently. We were able to discuss our understanding of Celexa safety in . She worked with the social work team and attempt to find appropriate follow-up and aftercare. We did confirm a previous appointment for outpatient follow-up which is in place. We were assured that there were no guns or other clearly unsafe resources in the home. She had significant improvement since presenting to the emergency department and was able to contact the outside of the hospital prior to discharge. During the hospitalization, patient had routine laboratory studies which were within normal limits except for few outliers. Additionally there was a general medical evaluation which was also within normal limits and revealed no new acute processes. Discharge Summary: At the time of discharge, she denied psychosis or lethality. Mood and anxiety were well managed. Patient endorsed a plan to avoid all drugs of abuse and follow-up with the aftercare recommendations of the treatment team. Patient was evaluated and deemed to be absent credible lethality, and had achieved the maximum benefit from an inpatient hospitalization, so was discharged. Involuntary Hold Information 96 Hour Hold: 96 Hour Involuntary Admission: No Mental Status Exam MSE Comments: This is an obese white female, in hospital scrubs, with adequate grooming and eye contact. No abnormal movements, except for mild psychomotor retardation. Cooperative with exam in mild distress. Speech was normal rate and volume. Mood described as depressed, but better than yesterday; affect congruent. Thought process, organized. Thought content: patient denied any suicidal or homicidal ideation, there were no delusions reported or noted, patient denied any auditory or visual hallucinations. Attention, concentration, and memory appeared intact, but none were formally tested. Alert and oriented times three. Insight and judgment are fair. Impulse control is limited, but improving. Discharge Data Studies Completed and Pending: Completed Studies During Hospitalization Category Date Time Status US OB limited 768 15 Stat Ultrasound 09/19/22 11:08 Completed US kidney bilater al [US renal BI* [id number]] Stat Ultrasound 09/19/22 18:11 Completed Radiology Impressions Obstetrics Ultrasound 09/19/22 11:08 IMPRESSION: Single viable intrauterine estimated at 12 weeks 4 days station all age. Renal Ultrasound 09/19/22 18:11 IMPRESSION: Unremarkable renal and bladder ultrasound examination. Laboratory Results WBC 11.3 10^3/uL (4.0 -10.0) H 09/19/22 11:13 RBC 4.98 10^6/uL (4.1 -5.3) 09/19/22 11:13 Hgb 12.7 g/dL (11.5-1 5.3) 09/19/22 11:13 Hct 39.2 % (37.0-47.0 ) 09/19/22 11:13 MCV 78.7 fl (81-99) L 09/19/22 11:13 MCH 25.5 pg (28.0-34. 0) L 09/19/22 11:13 MCHC 32.4 g/dL (30.0-3 6.0) 09/19/22 11:13 RDW 13.7 % (12.1-15.1 ) 09/19/22 11:13 Plt Count 343 10^3/cmm (130 -400) 09/19/22 11:13 MPV 8.7 fL (7.4-10.4) 09/19/22 11:13 Neut % (Auto) 82.8 % 09/19/22 11:13 Lymph % (Auto) 11.5 % 09/19/22 11:13 [place] % (Auto) 5.0 % 09/19/22 11:13 Eos % (Auto) 0.1 % 09/19/22 11:13 Baso % (Auto) 0.2 % 09/19/22 11:13 Neut # (Auto) 9.32 10^3/uL (1.8 -7.7) H 09/19/22 11:13 Lymph # (Auto) 1.3 10^3/uL (0.8- 4.8) 09/19/22 11:13 [place] # (Auto) 0.6 10^3/uL (0.2- 0.9) 09/19/22 11:13 Eos # (Auto) 0.0 10^3/uL (0.0- 0.8) 09/19/22 11:13 Baso # (Auto) 0.0 10^3/uL (0.0- 0.1) 09/19/22 11:13 Nucleated RBC % (a uto) 0 % 09/19/22 11:13 Nucleated RBCs # 0.0 /100WBC 09/19/22 11:13 Sodium 134 mmol/L (136-1 45) L 09/19/22 11:13 Potassium 3.8 mmol/L (3.5-5 .1) 09/19/22 11:13 Chloride 101 mmol/L (98-10 7) 09/19/22 11:13 Carbon Dioxide 19 mmol/L (22-29) L 09/19/22 11:13 Anion Gap 17.8 (5-19) 09/19/22 11:13 BUN 5 mg/dL (6-20) L 09/19/22 11:13 Creatinine 0.4 mg/dL (0.5-0. 9) L 09/19/22 11:13 GFR Calculation 187.4 mL/min (90- 130) H 09/19/22 11:13 Glucose 91 mg/dL (65-115) 09/19/22 11:13 Calculated Osmolal ity 275 mOsm/kg (285- 295) L 09/19/22 11:13 Calcium 9.5 mg/dL (8.5-10 .5) 09/19/22 11:13 Total Bilirubin 0.5 mg/dL (0.15-1 .2) 09/19/22 11:13 AST 12 U/L (0-32) 09/19/22 11:13 ALT 11 U/L (0-33) 09/19/22 11:13 Alkaline Phosphata se 60 U/L (35-105) 09/19/22 11:13 Total Protein 8.0 g/dL (6.6-8.7 ) 09/19/22 11:13 Albumin 3.9 g/dL (3.5-5.2 ) 09/19/22 11:13 Globulin 4.1 g/dL (1.3-4.6 ) 09/19/22 11:13 Ser , Mal [place]-Qnt 65232.00 mIU/mL 09/19/22 11:13 Urine Color Dark yellow (Yel low) 09/19/22 11:24 Urine Appearance Hazy (CLEAR) A 09/19/22 11:24 Urine pH 6.5 (5-7) 09/19/22 11:24 Ur Specific Gravit y 1.015 (1.005-1.0 30) 09/19/22 11:24 Urine Protein Neg (Negative) 09/19/22 11:24 Urine Glucose (UA) Norm (Normal) 09/19/22 11:24 Urine Ketones 3+ (Negative) H 09/19/22 11:24 Urine Blood Neg (Negative) 09/19/22 11:24 Urine Nitrate Negative (Negati ve) 09/19/22 11:24 Urine Bilirubin 1+ (Negative) H 09/19/22 11:24 Urine Urobilinogen 4 mg/dL (Negative ) H 09/19/22 11:24 Ur Leukocyte Dennise ase 2+ (Negative) H 09/19/22 11:24 Urine RBC None /hpf (0-2) 09/19/22 11:24 Urine WBC 10-15 /hpf (0-5) H 09/19/22 11:24 Ur Squamous Epith Cells 10-15 /hpf (0-5) H 09/19/22 11:24 Amorphous Sediment Not Reportable 09/19/22 11:24 Urine Bacteria 2+ /hpf (NONE) H 09/19/22 11:24 Salicylates 0.6 mg/dL (3-10) L 09/19/22 11:13 Urine Opiates Scre en Negative ng/mL (N egative) 09/19/22 11:24 Acetaminophen < 5.0 ug/mL (10-3 0) L 09/19/22 11:13 Ur Barbiturates Sc reen Negative ng/mL (N egative) 09/19/22 11:24 Ur Phencyclidine S crn Negative ng/mL (N egative) 09/19/22 11:24 Ur Amphetamines Sc reen Negative ng/mL (N egative) 09/19/22 11:24 U Benzodiazepines Scrn Positive ng/mL (N egative) H 09/19/22 11:24 Urine Cocaine Scre en Negative ng/mL (N egative) 09/19/22 11:24 U Marijuana (THC) Screen Negative ng/mL (N egative) 09/19/22 11:24 Ethyl Alcohol < 10 mg/dL (0-10) 09/19/22 11:13 Vitals: Last Vital Signs Temp 98.2 F 09/19/22 21:05 Pulse 67 09/20/22 06:00 Resp 16 09/20/22 06:00 BP 142/82 09/20/22 06:00 Pulse Ox 95 09/20/22 06:00 O2 Del Method Room Air 09/19/22 14:50 Discharge Plan Discharge Patient Disposition: Home Condition: Stable Prescriptions: Continued albuterol sulfate 2.5 mg /3 mL (0.083 %) solution for nebulization 2.5 mg INHALATION Q6H PRN (Reason: Shortness Of Breath) propranolol 20 mg tablet 20 mg PO BID PRN (Reason: Anxiety) Multivitamins 28 mg iron- 800 mcg Tablet 1 tab PO BEDTIME citalopram 20 mg tablet 20 mg PO BEDTIME albuterol sulfate 90 mcg/actuation HFA aerosol inhaler 1 puff inhalation QID PRN (Reason: shortness of breath or wheezing) No Action ondansetron HCl 4 mg tablet 4 mg PO Q8H PRN (Reason: nausea and vomiting) Qty: 20 1RF Discharge Orders: Discharge Order (Routine); Ordered 09/20/22 Ordered By: Issa Yan Referrals: Ashley Mendoza [Other] - 10/11/22 3:00 pm Ady Monk MD [Primary Care Provider] - 09/21/22 11:30 am Discharge Diet: Regular Discharge Activity: Resume usual activity Patient Instructions: Nitrofurantoin (By mouth) (Furadantin), Depression (DC), PTSD (Post Traumatic Stress Disorder) (DC), Opioid Safety Discharge Attestations NPU Time Spent in Discharge Care*: greater than 30 min Specific Discharge Activities: Specific discharge activities: educating patient, discussing with counseling case manager/social workers/dc planners, documenting/other paperwork and evaluating patient/reviewing data Coding Level of Care Code Acute Chg FW DC note Diagnoses UTI (urinary tract infection) N39.0 Nausea and vomiting R11.2 Z34.90 Suicidal ideation R45.851 PTSD (post-traumatic stress disorder) F43.10 MDD (major depressive disorder), recurrent episode F33.9
[2022-09-20 13:22] VITALS: BP 142/82; PULSE 67; RESP 16; O2SAT 95
[2022-09-20 13:26] VITALS: BP 128/85; PULSE 82; RESP 16; TEMP 37; O2SAT 98
== END 2022-09-20 13:44 | disposition home or self-care (01) ==
LOC: ER 11:27 → NP 16:16
PROVIDERS: Admitting Provider Psychiatry & Neurology Psychiatry; Emergency Provider Physician Assistant; PCP Family Medicine; Visit Provider Psychiatry & Neurology Psychiatry
DX: O20.9 Hemorrhage in early pregnancy, unspecified (principal); O21.9 Vomiting of pregnancy, unspecified; O99.341 Other mental disorders complicating pregnancy, first trimester; F33.9 Major depressive disorder, recurrent, unspecified; R45.851 Suicidal ideations; F43.10 Post-traumatic stress disorder, unspecified; O23.41 Unspecified infection of urinary tract in pregnancy, first trimester; N39.0 Urinary tract infection, site not specified; Z3A.12 12 weeks gestation of pregnancy
CPT/HCPCS: 76770; 76815; 80053; 80306; 80307; 81001; 84702; 85025; 96361; 96374; 97150; 97165; 99285; G0378; J2405; J7030

== ENCOUNTER 2022-12-25 16:54 | Outpatient (CLI) | payer BC, SELFPAY ==
[2022-12-25 17:00] VITALS: BMI 36.2
[2022-12-25 17:11] VITALS: BP 137/78; PULSE 95
[2022-12-25 17:26] VITALS: BP 128/73; PULSE 89
[2022-12-25 17:33] VITALS: RESP 17
[2022-12-25 18:11] LABS: Bilirubin Urine Neg (Negative); Blood Urine Neg (Negative); Glucose Urine UA Norm (Normal); Ketones Urine Negative (Negative); Leukocyte Esterase Urine Trace (Negative); Nitrate Urine Negative (Negative); Protein Urine Neg (Negative); Urine Appearance Clear (CLEAR); Urine Color Yellow (Yellow); Urobilinogen Urine Norm (Negative); pH Urine 7 (5-7)
[2022-12-25 18:13] LABS: Add Urine Culture? No; Bacteria Urine TRACE /hpf; WBC Urine 0-4 /hpf (0-5)
[2022-12-25 18:37] VITALS: RESP 17
== END 2022-12-25 18:38 | disposition home or self-care (01) ==
LOC: OPOB 17:00 → OBGYN 17:01
PROVIDERS: PCP Family Medicine; Visit Provider Family Medicine
DX: O26.899 Other specified pregnancy related conditions, unspecified trimester (principal); Z3A.00 Weeks of gestation of pregnancy not specified; R10.2 Pelvic and perineal pain; R60.9 Edema, unspecified
CPT/HCPCS: 81001; 99211

== ENCOUNTER 2023-01-22 11:26 | Outpatient (CLI) | payer BC, SELFPAY ==
[2023-01-22] VITALS (9 sets, daily range): BP systolic 131–147; BP diastolic 68–79; PULSE 95–114; RESP 16; BMI 37.0
[2023-01-22 12:41] LABS: Basophils % 0.2 %; Eosinophils # 0.1 10^3/uL (0.0-0.8); Eosinophils % 0.7 %; Hematocrit 29.2 % (36-47); Lymphocytes # 1.3 10^3/uL (0.8-4.8); Lymphocytes % 12.2 %; Mean Corpuscular HGB Conc 32.5 g/dL (30-55); Mean Corpuscular Hemoglobin 26.8 pg (27-33); Mean Corpuscular Volume 82.3 fl (85-98); Mean Platelet Volume 9.3 fL (7.4-10.4); Monocytes # 0.6 10^3/uL (0.2-0.9); Monocytes % 5.3 %; Neutrophils # 8.56 10^3/uL (1.8-7.7); Neutrophils % 79.6 %; Nucleated Red Blood Cells % 0 %; Platelet Count 266 10^3/cmm (157-399); Red Blood Count 3.55 10^6/uL (3.85-5.65); Red Cell Distribution Width 15.6 % (12.1-15.1); White Blood Count 10.75 10^3/uL (3.29-11.43)
[2023-01-22 12:47] LABS: Bacteria Urine 4+ /hpf; Bilirubin Urine Neg (Negative); Blood Urine Neg (Negative); Glucose Urine UA Norm (Normal); Ketones Urine 1+ (Negative); Leukocyte Esterase Urine 2+ (Negative); Nitrate Urine Negative (Negative); Protein Urine Neg (Negative); RBC Urine 0-4 /hpf (0-2); Specific Gravity, Urine 1.015 (1.005-1.030); Urine Appearance Hazy (CLEAR); Urine Color Yellow (Yellow); Urobilinogen Urine Norm (Negative); WBC Urine 40-55 /hpf (0-5); pH Urine 7 (5-7)
[2023-01-22 12:48] LABS: Add Urine Culture? No
[2023-01-22 12:57] LABS: Alanine Aminotransferase 9 U/L (0-33); Albumin Level 3.4 g/dL (3.5-5.2); Alkaline Phosphatase 69 U/L (35-105); Anion Gap 16.1 (5-19); Aspartate Amino Transferase 12 U/L (0-32); Blood Urea Nitrogen 4 mg/dL (6-20); Calcium 9.7 mg/dL (8.5-10.5); Carbon Dioxide 20 mmol/L (22-29); Chloride 106 mmol/L (98-107); Globulin 3.1 g/dL (1.3-4.6); Glomerular Filtration Rate 187.4 mL/min (90-130); Glucose 151 mg/dL (65-115); Osmolality Calculated 286 mOsm/kg (285-295); Potassium 4.1 mmol/L (3.5-5.1); Sodium 138 mmol/L (136-145); Total Bilirubin 0.2 mg/dL (0.15-1.2); Total Protein 6.5 g/dL (6.6-8.7); Uric Acid 3.2 mg/dL (2.4-5.7)
[2023-01-22 12:59] LABS: Urine Creatinine 101 mg/dL (28-217); Urine Protein Random 12 mg/dL
[2023-01-22 13:00] LABS: UPRO/UCREAT Ratio 0.12 mg/mg CR
== END 2023-01-22 13:30 | disposition home or self-care (01) ==
LOC: OPOB 11:31 → OBGYN 11:32
PROVIDERS: Family Medicine; PCP Family Medicine; Visit Provider Family Medicine
DX: O36.8190 Decreased fetal movements, unspecified trimester, not applicable or unspecified (principal); Z3A.00 Weeks of gestation of pregnancy not specified
CPT/HCPCS: 36415; 59025; 80053; 81001; 82570; 84156; 84550; 85025; 99211

== ENCOUNTER 2023-02-08 19:50 | Outpatient (CLI) | payer BC, SELFPAY ==
[2023-02-08 19:50] VITALS: BMI 37.0
[2023-02-08 20:12] VITALS: BP 120/58; PULSE 90
[2023-02-08 20:27] VITALS: BP 123/63; PULSE 86
== END 2023-02-08 21:00 | disposition home or self-care (01) ==
LOC: OPOB 19:56 → OBGYN 19:57
PROVIDERS: PCP Family Medicine; Visit Provider Family Medicine
DX: O21.9 Vomiting of pregnancy, unspecified (principal); Z3A.00 Weeks of gestation of pregnancy not specified
CPT/HCPCS: 59025; 99211

== ENCOUNTER 2023-03-06 17:09 | Outpatient (CLI) | payer BC, SELFPAY ==
[2023-03-06 17:17] VITALS: BP 143/78; PULSE 100
[2023-03-06 17:23] VITALS: BMI 37.9
[2023-03-06 17:28] VITALS: BP 139/76; PULSE 96
[2023-03-06 17:38] VITALS: BP 143/78; PULSE 99
[2023-03-06 17:48] VITALS: BP 140/76; PULSE 96
[2023-03-06 17:58] VITALS: BP 136/76; PULSE 102
[2023-03-06 18:23] VITALS: BP 136/76; PULSE 102
== END 2023-03-06 18:31 | disposition home or self-care (01) ==
LOC: OPOB 17:10 → OBGYN 17:14
PROVIDERS: PCP Family Medicine; Visit Provider Family Medicine
DX: O26.899 Other specified pregnancy related conditions, unspecified trimester (principal); Z3A.00 Weeks of gestation of pregnancy not specified; R10.9 Unspecified abdominal pain
CPT/HCPCS: 59025; 99211

== ENCOUNTER 2023-03-13 23:36 | Outpatient (CLI) | payer BC, SELFPAY ==
[2023-03-13 23:30] VITALS: BMI 38.6
[2023-03-13 23:46] VITALS: TEMP 36.2
[2023-03-13 23:47] VITALS: BP 132/81; PULSE 85
[2023-03-14 00:05] VITALS: BP 129/75; PULSE 83
[2023-03-14 00:20] VITALS: BP 131/74; PULSE 84
[2023-03-14 00:35] VITALS: BP 132/71; PULSE 86
[2023-03-14 00:51] VITALS: BP 137/73; PULSE 82
[2023-03-14 01:08] VITALS: BP 137/73; PULSE 82
== END 2023-03-14 01:08 | disposition home or self-care (01) ==
LOC: OPOB 23:36 → OBGYN 23:40
PROVIDERS: PCP Family Medicine; Visit Provider Family Medicine
DX: O26.899 Other specified pregnancy related conditions, unspecified trimester (principal); Z3A.00 Weeks of gestation of pregnancy not specified; R10.9 Unspecified abdominal pain; R42 Dizziness and giddiness; R11.0 Nausea
CPT/HCPCS: 59025; 99211

== ENCOUNTER → 2023-03-14 10:23 | Day surgery (SDC) | payer BC, SELFPAY | PROVIDERS: PCP Family Medicine; Visit Provider Family Medicine | DX: Z34.90 Encounter for supervision of normal pregnancy, unspecified, unspecified trimester (principal); Z3A.00 Weeks of gestation of pregnancy not specified ==

== ENCOUNTER 2023-03-15 14:32 | Inpatient (IN) | payer BC, SELFPAY ==
[2023-03-15] VITALS (16 sets, daily range): BP systolic 124–169; BP diastolic 66–88; PULSE 79–105; RESP 17; BMI 41.7
--- NOTE | 2023-03-15 12:54 | PM.OBTRLD ---
OB L&D Triage Visit Information: Date of evaluation: 03/15/23 Comments/Additional reason(s) for visit: The patient is a 32-year-old 1 at 37 weeks and 6 days who presents to the hospital having contractions. She had been having contractions for several hours prior to coming. She thought there have been about every 10 minutes. Here in the hospital they are occurring about every 2 to 5 minutes. Her cervix was about 2 and half centimeters when she arrived. After about 4 hours was 3 cm. The cervix had also changed in position. She is 75% effaced. Her contractions were consistent, and painful. As result, I have elected to have the patient stay longer to see whether she will continue make cervical change or whether she should be discharged home. heart tones look good. She is having good accelerations. Good long-term variability. No decelerations. I discussed the situation with the patient and her significant other. They have no further questions unrealized or waiting for 2 hours to see if she makes further change. If she does not make significant change, we will send her home. Evaluation: monitor accelerations: Present 15x15 station: -3 Vital signs: Vital Signs - 24 hr 03/15/23 08:39 03/15/23 08:39 03/15/23 08:59 Pulse Rate 94 Respiratory Rate 17 17 Blood Pressure 126/76 Oxygen Delivery Me thod Room Air 03/15/23 09:14 03/15/23 10:18 03/15/23 10:33 Pulse Rate 79 105 H 96 Respiratory Rate Blood Pressure 124/73 137/79 134/73 Oxygen Delivery Me thod 03/15/23 11:18 03/15/23 12:44 03/15/23 12:52 Pulse Rate 96 99 101 H Respiratory Rate Blood Pressure 135/66 133/88 145/73 Oxygen Delivery Me thod Coding Level of Care Code Acute Code for Chg Fwd
[2023-03-15 14:27] LABS: Actim Prom Positive
[2023-03-15] MEDS: miSOPROStol 100 mcg tablet 25 MCG SUBLINGUAL ×2 (15:17→19:29)
[2023-03-15] MEDS: ceFAZolin 2,000 MG in sodium chloride 0.9% (plus) 50 ML 100 MG IV (15:45)
[2023-03-15] MEDS: dextrose 5%-lactated ringers 1,000 ML 125 ML IV (15:45)
[2023-03-15 18:35] LABS: Basophils % 0.2 %; Eosinophils % 0.2 %; Hematocrit 34.1 % (36-47); Lymphocytes # 1.7 10^3/uL (0.8-4.8); Lymphocytes % 13.9 %; Mean Corpuscular HGB Conc 32.8 g/dL (30-55); Mean Corpuscular Hemoglobin 26.6 pg (27-33); Monocytes # 0.9 10^3/uL (0.2-0.9); Monocytes % 7.5 %; Neutrophils # 9.56 10^3/uL (1.8-7.7); Neutrophils % 77.6 %; Nucleated Red Blood Cells % 0 %; Platelet Count 285 10^3/cmm (157-399); Red Blood Count 4.21 10^6/uL (3.85-5.65); Red Cell Distribution Width 16.5 % (12.1-15.1); White Blood Count 12.34 10^3/uL (3.29-11.43)
[2023-03-15] MEDS: fentaNYL 50 mcg/mL INJ 2mL IVP ×2 (21:26→23:24)
[2023-03-15] MEDS: ceFAZolin 1,000 MG in sodium chloride 0.9% (plus) 50 ML 100 MG IV (23:02)
[2023-03-16] VITALS (98 sets, daily range): BP systolic 97–179; BP diastolic 51–98; PULSE 92–123; RESP 16–18; TEMP 36.2–36.9; O2SAT 97–99; BMI 41.7
--- NOTE | 2023-03-16 00:28 | ANES.PREANE2 ---
Pre-Anesthetic Assessment Height/Weight: Height 1.63 m Weight 110.223 kg Pulse Resp BP Pulse Ox O2 Del Method 122 H 17 154/65 98 Room Air 03/16/23 00:26 03/15/23 23:24 03/16/23 00:26 03/16/23 00:19 03/15/23 17:13 Preop Diagnosis: Labor pain BELEM Was Beta Geronimo taken within 24 hours: N/A Was Clonidine taken within 24 hours: N/A Social No alcohol and No tobacco Exam alert, oriented x 3, clear to auscultation bilaterally and regular rate & rhythm Airway Submandibular: within normal limits Cervical ROM: within normal limits Mallampati: Class II Dentition: full History/ROS No significant history except as noted and No significant complaints Pulmonary Asthma CV/HEM None reported None reported Hepatic None reported GI None reported Metabolic Morbid Obesity Musc/skel Lower Back Pain Neuropsych Anxiety Anesthetic Plan ASA status: 2 Anesthesia: Anesthesia Evaluation and Regional (specify below) (BELEM) Risk of > 500 ml blood loss (7ml/kg in children): No Medications/Allergies Home Medications Medication Instructions Recorded Confirmed Last Taken Type citalopram 20 mg tablet 20 mg PO BEDTIME 09/19/22 03/13/23 03/13/23 History vit no.95-ferrous 1 tab PO BEDTIME 09/19/22 03/14/23 03/14/23 History fumarate 28 mg-folic acid 800 mcg tablet ( Multivitamins) Allergies Allergy/AdvReac Type Severity Reaction Status Date / Time amoxicillin Allergy hives--Can Verified 03/13/23 23:59 take Keflex Penicillins Allergy ALGY-Hives Verified 03/13/23 23:59 Sulfa (Sulfonamide Allergy hives Verified 03/13/23 23:59 Antibiotics) sulfamethoxazole Allergy hives Verified 03/13/23 23:59 [From Bactrim] trimethoprim [From Bactrim] Allergy hives Verified 03/13/23 23:59 Current Medications Generic Name Dose Route Start Last Admin Trade Name Freq PRN Reason Stop Dose Admin Fentanyl 25 - 100 mcg 03/15/23 21:12 03/15/23 23:24 Fentanyl 50 Mcg/Ml Inj 2ml IVP 50 mcg Q1H PRN Administration SEVERE PAIN Dextrose/Lactated Ringer's 1,000 mls @ 125 mls/hr 03/15/23 14:45 03/15/23 16:45 Dextrose 5%-Lactated Ringers IV 0 mls/hr .Q8H DIANA Infusion Cefazolin Sodium 1,000 mg/ 50 mls @ 100 mls/hr 03/15/23 22:45 03/15/23 23:02 Sodium Chloride IV 100 mls/hr Q8H DIANA Administration Protocol [facility] Anesthesia Medical History (Updated 10/08/22 @ 14:26 by Tameka Palomino) Psychiatric care Acne Had pretty severe acne and was taking Accutane and other treatment under construction safety manager Dr. Harden in [facility]. Her last treatment was in May or June 2019. Not currently on any medication other than Lorie Psoriasis /Scleritis---did take methotrexate in the past for the psoriasis. She was started on Xeljanz in June 2020 managed by her datapower consultant Dr. Ni in [facility] No pertinent past medical history Denies diabetes, hypertension, seizures, DVT/PE. Her primary care doctor is Dr. Monk. Anxiety as acute reaction to exceptional stress Since her in November 2018 of her myocardial infarction she has been on medication and seeing the therapist Ms Bridges and states that symptoms are well controlled with these interventions. Asthma States that she has had asthma as a child. Now uses her inhaler a couple of times a year Surgical History H/O removal of cyst Removal of right labial cyst; Done on 06/30/[address] Prieto at [facility]. Pathology showed inflammatory cyst and granulation tissue. S/P wisdom tooth extraction 2010 S/P tonsillectomy 2013, denies problems with anesthesia Family History Grandmother Heart disease Paternal great grandmother Hypertension maternal and paternal Breast cancer maternal, age at diagnosis unknown Mother Diabetes Hypertension Family/Other Thyroid condition cousin paternal aunt Breast cancer materna aunt, diagnosed in her 50s Denies family history of Cervical cancer Colon cancer Ovarian cancer DVT (deep venous thrombosis) Bleeding disorder Pulmonary embolism Uterine cancer Social History Smoking and tobacco/nicotine status: never used tobacco/nicotine Alcohol intake: never Substance/Drug Use: current Female Reproductive History : 1 Data Anesthesia 03/15/23 15:20 Short CBC 03/15/23 Range/Units 15:20 WBC 12.34 H (3.29-11.43) 10^3/uL Hgb 11.20 L (11.27-16.99) g/dL Hct 34.1 L (36-47) % MCV 81.0 L (85-98) fl Plt Count 285 (157-399) 10^3/cmm Neut % (Auto) 77.6 % Neut # (Auto) 9.56 H (1.8-7.7) 10^3/uL Blood Bank 03/15/23 15:20 Blood Type A Positive Rho(D) Type Rh positive Antibody Screen Negative Cardiac Studies: No Data to Display
--- NOTE | 2023-03-16 00:30 | ANES.PROC ---
Anesthesia Procedures Procedure/Date: 03/16/23 Epidural: Time Out Performed: Yes Consents Signed: Procedure Consent Consent: requested by attending/covering physician, from patient, risks and benefits reviewed and patient agrees to proceed Lumbar Level: L3-L4 Epidural position: sitting Epidural procedure: sterile prep of area, 1% lidocaine to numb the area, 18 g needle, negative for paresthesia passed, neg for paresthesia, test dose given, 1.5% xylocaine 1:200k epi (5cc neg), 0.2% Ropivacaine bolus ml (4cc and Fentanyl 100mcg), placed PCEA, no systemic response, sterile dressing applied, L.U.D. no apparent complications and 0.2% Ropiavacaine @ mls/hr (10cc/hour. JOSTIN at 7cm. Cath placed 3 cm into epidural space. Pt tolerated well)
[2023-03-16] MEDS: oxytocin 30 UNIT/500 ML BAG IV (01:47)
[2023-03-16] MEDS: ROPivacaine syringe 100 MG/50 ML SYRINGE 10 MG EPIDURAL ×2 (05:13→09:13)
[2023-03-16] MEDS: dextrose 5%-lactated ringers 1,000 ML 124 ML IV (05:30)
[2023-03-16] MEDS: ceFAZolin 1,000 MG in sodium chloride 0.9% (plus) 50 ML 100 MG IV (06:24)
--- NOTE | 2023-03-16 08:06 | PM.OPHPUD ---
Labor & Delivery H&P Update Date of Procedure: March 16, 2023 Date H&P Performed: 03/14/23 Changes to previous documentation: Spontaneous rupture membranes Admission Diagnosis: 32-year-old 1 at 38 weeks estimated gestational age with spontaneous rupture membranes Preop diagnosis: Labor pain Other information: The patient is an otherwise healthy female who presented to the hospital complaining of contractions. While she was being evaluated, we did notice some minor cervical change. While she was ambulating, she noticed a gush of fluid. She was found to be actin PROM positive. Her has otherwise been unremarkable. Her blood type is a positive her antibody screen was negative. She passed her 3-hour glucose screen. She is GBS positive. She is rubella immune. Otherwise her labs have been within normal limits. Related Problem List Diagnoses (1) 38 weeks gestation of : The patient has been placed on Cytotec, and followed up with Pitocin. heart tones have demonstrated some late decelerations that have resolved with appropriate position changes. We will continue to move towards a vaginal delivery at this time. (2) Spontaneous rupture of membranes: A&P Assessment and plan (1) 38 weeks gestation of : Status: Acute (2) Spontaneous rupture of membranes: Status: Acute
--- NOTE | 2023-03-16 12:28 | P.PCNOB_ITS ---
Delivery Note: Date of delivery: March 16, 2023 Pre-delivery diagnoses: 32-year-old 1 at 38 weeks estima navid gestational age presenting in active labor Post-delivery diagnoses: Status post spontaneous vaginal delivery of 38-week male Procedure: Spontaneous vaginal delivery Delivering Physician: Leighton Hall Estimated blood loss (mL): 100 Pre-Delivery Course: The patient presented to the hospital in active labor. She had spontaneous rupture of membranes. She was GBS positive and was treated with Ancef x 2. Her labor was augmented with Cytotec x 2 and Pitocin. She progressed to complete without difficulty. The baby was noted to have some arrhythmias during labor. Delivery: DELIVERY: The patient progressed to complete without difficulty. She delivered a male with a weight of 7 pounds 4 ounces with Apgars of 8, 9. The baby was delivered from the GERALDINE position and placed on the mother's abdomen. The cord was then clamped and cut. There was no nuchal cord. There was no meconium. The placenta and 3 vessel cord were delivered intact shortly thereafter. The perineum and vaginal vault were carefully examined. A small second-degree posterior midline laceration was noted. It was repaired with 3-0 Vicryl in usual fashion. Both the mother and the baby were in stable condition. Post-Delivery Status: Good History History History 0 Term Miscarriages/Ectopic Living Children A&P Assessment and plan (1) Spontaneous vaginal delivery: I anticipate routine care. Coding Level of Care Code Acute Code for Chg Fwd Diagnoses Spontaneous vaginal delivery O80
[2023-03-16] MEDS: docusate sodium 100 mg Capsule PO (17:17)
[2023-03-16] MEDS: acetaminophen 325 mg Tablet 650 MG PO (17:17)
--- NOTE | 2023-03-16 19:10 | PC.NURSE ---
this nurse place IV in pt Left forearm 18g yesterday, charted it as right forearm incorrectly
[2023-03-16] MEDS: HYDROcodone-acetaminophen 5-325 mg Tablet PO (19:13)
[2023-03-16] MEDS: ibuprofen 800 mg tablet PO (21:00)
[2023-03-17 00:45] LABS: Mean Corpuscular HGB Conc 29.6 g/dL (30-55); Mean Corpuscular Hemoglobin 26.5 pg (27-33); Mean Corpuscular Volume 89.4 fl (85-98); Mean Platelet Volume 9.6 fL (7.4-10.4); Platelet Count 112 10^3/cmm (157-399); Red Blood Count 1.51 10^6/uL (3.85-5.65); Red Cell Distribution Width 16.7 % (12.1-15.1); White Blood Count 8.06 10^3/uL (3.29-11.43)
[2023-03-17 00:48] LABS: Hematocrit 13.5 % (36-47)
[2023-03-17 01:19] LABS: Hematocrit 27.4 % (36-47); Mean Corpuscular HGB Conc 32.8 g/dL (30-55); Mean Corpuscular Hemoglobin 26.5 pg (27-33); Mean Corpuscular Volume 80.6 fl (85-98); Mean Platelet Volume 9.1 fL (7.4-10.4); Platelet Count 293 10^3/cmm (157-399); Red Cell Distribution Width 16.4 % (12.1-15.1); White Blood Count 17.29 10^3/uL (3.29-11.43)
[2023-03-17] MEDS: HYDROcodone-acetaminophen 5-325 mg Tablet PO (02:28)
--- NOTE | 2023-03-17 06:43 | PM.OBGYDC ---
Discharge Providers AGENT LICENSING CLERK Date of Admission: 03/15/23 14:32 Date of Discharge: 03/24/23 Attending Provider at Admission: Leighton Hall MD Attending Provider at Discharge: Leighton Hall MD Primary Care Provider: Ady Monk MD Diagnoses at Discharge Discharge Diagnosis (1) Spontaneous vaginal delivery: Status: Resolved Reason for Visit Reason for Visit: contractions Hospital Course Hospital Course The patient presented to the hospital in active labor. She had spontaneous rupture membranes. An epidural was placed. She was GBS positive and received multiple doses of Ancef. She progressed to complete without difficulty. She had an unremarkable delivery of a healthy appearing male infant. Her course was also unremarkable. Her bleeding was within normal limits. She had some difficulty with breast-feeding, but was assisted by vendor management specialist as well as the nurses. Information Peripartum Data: Delivery Method: Vaginal Physical Exam Narrative: The patient is alert. She appears comfortable. Her heart has a regular rate and rhythm with no murmurs appreciated. Lungs are clear to auscultation bilaterally. Her fundus is firm and below the umbilicus. Urinary Catheter Management: Mireles: Cath Placed During This Visit: yes, but has since been removed by the nurse Reason for Continuing Indwelling Catheter: Decision to DC Catheter Urinary Catheter Date of Insertion: 03/16/23 Urinary Catheter Time of Insertion: 01:10 Date Urinary Catheter Removed: 03/16/23 Time Urinary Catheter Discontinued: 11:10 History History History 0 Term Miscarriages/Ectopic Living Children Discharge Data Studies Completed and Pending Laboratory Results WBC 17.29 10^3/uL (3.29-11.43) H 03/17/23 01:10 RBC 3.40 10^6/uL (3.85-5.65) L 03/17/23 01:10 Hgb 9.00 g/dL (11.27-16.99) L D 03/17/23 01:10 Hct 27.4 % (36-47) L D 03/17/23 01:10 MCV 80.6 fl (85-98) L D 03/17/23 01:10 MCH 26.5 pg (27-33) L 03/17/23 01:10 MCHC 32.8 g/dL (30-55) D 03/17/23 01:10 RDW 16.4 % (12.1-15.1) H 03/17/23 01:10 Plt Count 293 10^3/cmm (157-399) D 03/17/23 01:10 MPV 9.1 fL (7.4-10.4) 03/17/23 01:10 Neut % (Auto) 77.6 % 03/15/23 15:20 Lymph % (Auto) 13.9 % 03/15/23 15:20 [place] % (Auto) 7.5 % 03/15/23 15:20 Eos % (Auto) 0.2 % 03/15/23 15:20 Baso % (Auto) 0.2 % 03/15/23 15:20 Neut # (Auto) 9.56 10^3/uL (1.8-7.7) H 03/15/23 15:20 Lymph # (Auto) 1.7 10^3/uL (0.8-4.8) 03/15/23 15:20 [place] # (Auto) 0.9 10^3/uL (0.2-0.9) 03/15/23 15:20 Eos # (Auto) 0.0 10^3/uL (0.0-0.8) 03/15/23 15:20 Baso # (Auto) 0.0 10^3/uL (0.0-0.1) 03/15/23 15:20 Nucleated RBC % (auto) 0 % 03/15/23 15:20 Nucleated RBCs # 0.0 /100WBC 03/15/23 15:20 Insulin-like GF I Positive 03/15/23 14:07 Blood Type A Positive 03/15/23 15:20 Rho(D) Type Rh positive 03/15/23 15:20 Antibody Screen Negative 03/15/23 15:20 Vitals Last Vital Signs Temp 98.4 F 03/16/23 22:00 Pulse 104 H 03/16/23 22:00 Resp 18 03/16/23 22:00 BP 136/76 03/16/23 22:00 Pulse Ox 98 03/16/23 00:56 O2 Del Method Room Air 03/16/23 22:00 Results Labs OB ([facility]): Obstetrics US 12/29/22 Blood Type A Positive 03/15/23 Antibody Screen Negative 03/15/23 Hct 27.4 % (36-47) L 03/17/23 Hgb 9.00 g/dL (11.27-16.99) L 03/17/23 Rho(D) Type Rh positive 03/15/23 Plt Count 293 10^3/cmm (157-399) 03/17/23 Hep Bs Antigen Non-reactive (Nonreactive) 07/27/22 Hep B Core IgM Ab Non-reactive (Nonreactive) 07/27/22 Hep Bs Antibody 3.5 (11.5-1000) L 07/27/22 Hepatitis C Antibody Non-reactive (Nonreactive) 07/27/22 Rubella IgG Antibody 47.4 IU/mL (0.0-10.0) H 07/27/22 RPR Nonreactive (Nonreactive) 07/27/22 HIV 1&2 Ab & HIV 1 Ag Non-reactive (Non-Reactiv) 07/27/22 TSH 1.63 uIU/mL (0.27-4.20) 07/27/22 Free T4 1.16 ng/dL (0.82-1.77) 09/28/21 Uric Acid 3.2 mg/dL (2.4-5.7) 01/22/23 Progesterone 18.18 ng/mL 07/27/22 Ser , Semi-Qnt 29698.00 mIU/mL 09/19/22 HCG, Qual Positive (Negative) H 07/21/22 Urine Opiates Screen Negative ng/mL (Negative) 09/19/22 Ur Barbiturates Screen Negative ng/mL (Negative) 09/19/22 Ur Phencyclidine Scrn Negative ng/mL (Negative) 09/19/22 Ur Amphetamines Screen Negative ng/mL (Negative) 09/19/22 U Benzodiazepines Scrn Positive ng/mL (Negative) H 09/19/22 Urine Cocaine Screen Negative ng/mL (Negative) 09/19/22 U Marijuana (THC) Screen Negative ng/mL (Negative) 09/19/22 Micro Urine Specimen 09/29/19 Pap Smear Interpret See note 07/18/19 Discharge Plan Discharge Patient Disposition: Home Condition: Stable Prescriptions: New ibuprofen 800 mg Tablet 800 mg PO TID Qty: 45 0RF Continued PNV cmb#95-ferrous fumarate-FA [ Multivitamins] 28 mg iron- 800 mcg Tablet 1 tab PO BEDTIME citalopram 20 mg tablet 20 mg PO BEDTIME Discharge Orders: Discharge Order (Routine); Ordered 03/17/23 Ordered By: Leighton Hall Referrals: Leighton Hall MD [Physician] - 04/27/23 11:10 am Discharge Diet: Usual diet Discharge Activity: Limit activity as instructed Patient Instructions: Ibuprofen (By mouth), Depression (DC), Bleeding (DC), Preeclampsia and Eclampsia After Delivery (GEN), Hemorrhage (GEN), OB Discharge Report, OB Food/Drug Interaction Guide, OB Care at Home, Opioid Safety, OB Home Care, OB Vaginal Deliveries Discharge Attestations AGENT LICENSING CLERK Time Spent in Discharge Care*: less than 30 min Coding Level of Care Code Acute Code for Chg Fwd Diagnoses Spontaneous vaginal delivery O80
[2023-03-17 09:30] VITALS: BP 121/84; PULSE 90; RESP 15; TEMP 36.7
[2023-03-17] MEDS: docusate sodium 100 mg Capsule PO (09:31)
[2023-03-17] MEDS: prenatal vitamin Capsule 1 CAP PO (09:31)
[2023-03-17] MEDS: ibuprofen 800 mg tablet PO (09:31)
[2023-03-17 16:14] VITALS: BP 143/85; PULSE 109; RESP 16; TEMP 37
--- NOTE | 2023-03-22 12:56 | ANE.PACU2 ---
Inpatient post-anesthesia follow up: Airway intact: Yes Vital signs: Temperature 98.6 F Pulse Rate 109 Respiratory Rate 16 Blood Pressure 143/85 Pulse Oximetry 98 Oxygen Delivery Me thod Room Air Oxygen Flow Rate Fraction of Inspir ed Oxygen Hydration adequate: Yes Nausea and vomiting: No Pain level: 1 Mental status: Baseline
== END 2023-03-17 16:10 | disposition home or self-care (01) | DRG 807 ==
LOC: OPOB 03-16 06:44 → OBGYN 03-16 06:44
PROVIDERS: Admitting Provider Family Medicine; PCP Family Medicine; Visit Provider Family Medicine
DX: O99.824 Streptococcus B carrier state complicating childbirth (principal); Z37.0 Single live birth; Z3A.37 37 weeks gestation of pregnancy; O70.1 Second degree perineal laceration during delivery; O76 Abnormality in fetal heart rate and rhythm complicating labor and delivery; O99.344 Other mental disorders complicating childbirth; F41.9 Anxiety disorder, unspecified; J45.909 Unspecified asthma, uncomplicated; O99.52 Diseases of the respiratory system complicating childbirth; L40.9 Psoriasis, unspecified; O99.72 Diseases of the skin and subcutaneous tissue complicating childbirth
CPT/HCPCS: 36415; 51702; 59025; 59409; 84112; 85025; 85027; 86850; 86900; 96374; 96376; 99211; J0690; J2590; J2795; J3010; J7121

== ENCOUNTER 2023-05-10 20:09 | Emergency (ER) | payer BC, SELFPAY ==
[2023-05-10 20:14] VITALS: BP 151/99; PULSE 102; RESP 16; TEMP 36.8; O2SAT 98
--- NOTE | 2023-05-10 20:14 | XRR_ITS ---
PROCEDURE INFORMATION: Exam: XR Left Ankle Exam date and time: 05/10/2023 8:22 PM Age: 33 years old Clinical indication: Injury or trauma; Other: Twisted; Blunt trauma; Ankle; Left TECHNIQUE: Imaging protocol: Radiologic exam of the left ankle. Views: 3 or more views. COMPARISON: No relevant prior studies available. FINDINGS: Bones/joints: No acute fracture. Soft tissues: Soft tissue swelling along the lateral aspect of the ankle. XR/XR ankle LT min 3V* [id number] IMPRESSION: 1. Soft tissue swelling along the lateral aspect of the ankle. 2. No acute fracture.
--- NOTE | 2023-05-10 20:29 | ED_ITS ---
HPI - Extremity Problem General: Chief complaint: Extremity Injury, Lower Stated complaint: Left ankle pain Time Seen by Provider: 05/10/23 20:18 Source: patient Mode of arrival: ambulatory Limitations: no limitations History of Present Illness: 33-year-old female states she went outsi de and stepped in a hole roughly 2 hours ago states she did twisted her left ankle felt a pop and has had swelling and pain to left lateral ankle since then states she is able to bear some weight but is quite painful denies any other injury denies any knee pain. Associated symptoms: Deny chest pain, fever(s) or rash Review of Systems Const: Denies: fever(s), chills, body aches or change in appetite ENMT: Denies: throat pain or dental pain Card: Denies: chest pain Resp: Denies: dyspnea GI: Denies: abdominal pain, nausea, vomiting or diarrhea Musc: Reports: extremity pain; Denies: neck pain or back pain Skin/Breast: Denies: rash PFSH ED PFSH: Medical History Psychiatric care Acne Had pretty severe acne and was taking Accutane and other treatment under group fitness manager Dr. Harden in [facility] in [place]. Her last treatment was in May or June 2019. Not currently on any medication other than Lorie Psoriasis /Scleritis---did take methotrexate in the past for the psoriasis. She was started on Xeljanz in June 2020 managed by her salesperson burial plots Dr. Ni in [facility] No pertinent past medical history Denies diabetes, hypertension, seizures, DVT/PE. Her primary care doctor is Dr. Monk. Anxiety as acute reaction to exceptional stress Since her in November 2018 of her myocardial infarction she has been on medication and seeing the therapist Ms Bridges and states that symptoms are well controlled with these interventions. Asthma States that she has had asthma as a child. Now uses her inhaler a couple of times a year Surgical History H/O removal of cyst Removal of right labial cyst; Done on 06/30/[address] Prieto at [facility]. Pathology showed inflammatory cyst and granulation tissue. S/P wisdom tooth extraction 2010 S/P tonsillectomy 2013, denies problems with anesthesia Family History Grandmother Heart disease Paternal great grandmother Hypertension maternal and paternal Breast cancer maternal, age at diagnosis unknown Mother Diabetes Hypertension Family/Other Thyroid condition cousin paternal aunt Breast cancer materna aunt, diagnosed in her 50s Denies family history of Cervical cancer Colon cancer Ovarian cancer DVT (deep venous thrombosis) Bleeding disorder Pulmonary embolism Uterine cancer Social History Smoking and tobacco/nicotine status: never used tobacco/nicotine Alcohol intake: never Substance/Drug Use: current Physical Exam Const: COMMON NORMALS: no acute distress, patient oriented x3 and healthy appearing HENMT: COMMON NORMALS: normocephalic and atraumatic HEAD & SCALP: normocephalic and atraumatic Eye: COMMON NORMALS: conjunctivae normal CONJUNCTIVA: Yes conjunctivae normal Neck/C-Spine: COMMON NORMALS: full ROM and supple Chest: COMMONS NORMALS: normal inspection of the chest Resp: COMMON NORMALS: normal respiratory effort Extremity: COMMON NORMALS: full ROM NARRATIVE EXTREMITY EXAM: Tenderness and swelling noted to left lateral ankle she has no knee tenderness no foot tenderness Neuro: COMMON NORMALS: patient oriented x3, moves all extremities and no focal motor deficits Psych: COMMON NORMALS: mental status grossly normal, Normal thought process present and cooperative THOUGHT PROCESS: Normal thought process present Skin: COMMON NORMALS: no rashes or lesions noted and no wounds GENERAL SKIN EXAM: no rashes or lesions noted Course 2 Vital Signs: Vital signs: Vital Signs Temperature 98.2 F 05/10/23 20:14 Pulse Rate 102 H 05/10/23 20:14 Respiratory Rate 16 05/10/23 20:14 Blood Pressure 151/99 05/10/23 20:14 Pulse Oximetry 98 05/10/23 20:14 MDM - Extremity (Nontraumatic) Medical Decision Making Patient presents here with an ankle sprain she is to ice rest and elevate did Rj wrap her she is to weight-bear as tolerated did discharge with crutches we will get her follow-up with podiatry Medical Records I reviewed the patient's medical records. XR interpretation done by ED provider, pending radiology final review ED provider radiology interpretation(s): X-ray left ankle no fracture Discharge Plan Discharge Patient Disposition: Home Clinical Impression: Ankle sprain and strain Condition: Stable Prescriptions: New hydrocodone-acetaminophen 5-325 mg tablet 1 tab PO Q6H PRN (Reason: pain) Qty: 10 0RF No Action PNV cmb#95-ferrous fumarate-FA [ Multivitamins] 28 mg iron- 800 mcg Tablet 1 tab PO BEDTIME citalopram 20 mg tablet 20 mg PO BEDTIME ibuprofen 800 mg Tablet 800 mg PO TID Qty: 45 0RF Discharge Orders: Discharge ED (Routine); Ordered 05/10/23 Ordered By: Lorena Guillory Referrals: Ady Monk MD [Primary Care Provider] - Floyd Ruiz DPM [Physician] - 1-3 days Discharge Diet: Advance as tolerated Discharge Activity: Increase activity as tolerated Patient Instructions: Ankle Sprain (ED) Coding Level of Care Code ED Gis Geographer for aCssius Emerson
[2023-05-10] MEDS: HYDROcodone-acetaminophen 5-325 mg Tablet 1 TAB PO (20:36)
[2023-05-10] MEDS: naproxen 500 mg Tablet PO (20:36)
[2023-05-10 20:39] VITALS: PULSE 90; RESP 16; O2SAT 97
--- NOTE | 2023-05-11 07:27 | DCPLANNER ---
Message sent to podiatry for a follow up on a sprain ankle
== END 2023-05-10 20:37 | disposition home or self-care (01) ==
PROVIDERS: Emergency Provider Emergency Medicine; PCP Family Medicine
DX: S93.402A Sprain of unspecified ligament of left ankle, initial encounter (principal); S96.912A Strain of unspecified muscle and tendon at ankle and foot level, left foot, initial encounter; X50.1XXA Overexertion from prolonged static or awkward postures, initial encounter
CPT/HCPCS: 73610; 99283; E0114

== ENCOUNTER 2023-12-26 20:00 | Outpatient (CLI) | payer BC, SELFPAY | END 2023-12-26 20:01 | disposition home or self-care (01) | LOC: SLEEP 12-27 00:04 | PROVIDERS: PCP Family Medicine; Visit Provider Family Medicine | DX: G47.33 Obstructive sleep apnea (adult) (pediatric) (principal); G47.36 Sleep related hypoventilation in conditions classified elsewhere | CPT/HCPCS: 95810 ==

== ENCOUNTER → 2024-08-08 09:33 | Outpatient (BNVA) | payer BC, SELFPAY | PROVIDERS: PCP Family Medicine; Visit Provider Family Medicine | DX: I10 Essential (primary) hypertension (principal) | CPT/HCPCS: 80053; 85025 ==

== ENCOUNTER 2024-09-28 17:19 | Emergency (ER) | payer BC, SELFPAY ==
[2024-09-28 17:25] VITALS: BP 129/78; PULSE 90; RESP 16; TEMP 36.9; O2SAT 98
--- OUTSIDE RECORDS SUMMARY | 2024-09-28 17:25 | XMS_ITS | Clinical Summary ---
Author Organization [facility] Casey hernandez Meade Address [address] [place] [address] Phone Care Team Providers Care Community Worker Name Role Phone Ady Monk MD Primary Care Provider [phone] Allergies Active Allergy Reactions Criticality Noted Date Comments Amoxicillin Swelling Low 07/23/2019 Sulfa (Sulfonamide Antibiotics) Hives High 07/05 Sulfamethoxazole-Trimethoprim Hives High 2019 Medications nystatin (MYCOSTATIN) 100,000 unit/mL suspension Take 5 mL (500,000 Units) by mouth 4 times daily. SWISH and SPIT 120 mL 0 1 Active citalopram (CeleXA) 20 mg tablet Take 20 mg by mouth daily at bedtime. Active citalopram (CeleXA) 20 mg tablet Take 20 mg by mouth daily. 0 Active difluprednate (DUREZOL) 0.05 % solution 1 Drop 3 times daily. 0 Active INTRAUTERINE DEVICE, IUD, INTRAUTERINE by Intrauterine route. Active tofacitinib (Xeljanz XR) 11 mg Tablet Sustained Release 24HR Take 1 Tablet (11 mg) by mouth daily. 30 Tablet 3 4 Active clobetasoL (TEMOVATE) 0.05 % Solution Apply to affected area 2 times daily. 50 mL 1 4 Active Active Problems Problem Noted Date Diagnosed Date Iritis 07/23/2019 Encounters Date Type Department Care Team Description 09/19/2024 External Device Data [facility] ABSTRACTION Provider, Abstract 09/18/2024 External Device Data [facility] ABSTRACTION Provider, Abstract 09/04/2024 External Device Data [facility] ABSTRACTION Provider, Abstract 07/18/[address] [facility] Health Information Management [place] [address] [place] [address] Provider, Abstract from Last 3 Months Immunizations Immunization Administration Dates Next Due (M-M-R II/PRIORIX)(12 MO UP) MEASLES, MUMPS AND RUBELLA VIRUS VACCINE, 0.5 ML IM/SUBCUT 04/17/1997,11/25/1993 Dt Dtp Dtap Vaccine 04/17/1997, 5,04/29/1993,1992,1992 HIB, Unspecified Formulation 11/25/1993, 04/29/1993,1992,1992 Hepatitis B Vaccine 04/29/1993,1992,1992 IPV/OPV 04/17/1997, 4,1992,1992 Social History Tobacco Use Types Packs/Day Years Used Date Smoking Tobacco: Never Smokeless Tobacco: Never Tobacco Cessation:Counseling Given: Not Answered Alcohol Use Standard Drinks/Week Comments Yes 3 (1 standard drink = 0.6 oz pur e alcohol) Comments No Sex and Gender Information Value Date Recorded Sex Assigned at Female 06/25/2023 1:35 PM CDT Legal Sex Female 3:22 PM CHIEF ENTERPRISE ARCHITECT Gender Identity Female 06/25/2023 1:35 PM CDT Sexual Orientation Straight 06/25/2023 1: 35 PM CDT Last Filed Vital Signs Vital Sign Reading Time Taken Comments Blood Pressure 128/80 06/18/2024 8:40 AM CDT Pulse 88 06/18/2024 8:40 AM CDT Temperature - - Respiratory Rate 18 07/22/2021 9:19 AM CDT Oxygen Saturation 97% 06/18/2024 8:40 AM CDT Inhaled Oxygen Concentration - - Weight 102.5 kg (226 lb) 02/27/2024 8:47 AM CHIEF ENTERPRISE ARCHITECT Height 162.6 cm (5' 4 ) 06/18/2024 8:40 AM CDT Body Mass Index 38.79 02/27/2024 8:47 AM CHIEF ENTERPRISE ARCHITECT Plan of Treatment Upcoming Encounters Date Type Department Care Team (Late st Contact Info) Description 12/18/2024 9:00 AM CDT Office Visit [facility] Rheumatology- Peña Dequan Yoo [address] [facility] [address] [place] [address] Geovany Ni MD [address] [facility] [address] [place] [address] Health Maintenance Due Date Last Done Comments DTAP/TDAP/TD VACCINES (6 - Tdap) 05/07/2003 04/17/1997, 06/23/1994, 04/29/1993, Additional history exists HPV VACCINES (1 - 3-dose series) 05/07/2007 HPV/Cotest (21-29) 2013 CERVICAL CANCER SCREENING 2022 HPV/Cotest (30-65) 2022 PAP SMEAR 2022 INFLUENZA VACCINE (#1) 2024 HEPATITIS B VACCINES Completed 04/29/1993, 1992, 1992 Insurance [facility] [employer] Care Teams Community Worker Relationship Specialty Start Date End Date Ady Monk MD [address] [facility] [address] [place] [id number] PCP - General 05/29/20
--- OUTSIDE RECORDS SUMMARY | 2024-09-28 17:25 | XMS_ITS | Encounter Summary ---
Author Organization [facility] Address [address] [place] [address] Care Team Providers Care Electronics Tester Name Role Phone Ady Monk MD Primary Care Provider [phone] Encounter Details Date Type Department Care Team (Late Contact Info) Description 09/19/2024 External Device Data [place] ABSTRACTION Provider, Abstract NO ADDRESS ON FILE Social History Tobacco Use Types Packs/Day Years Used Date Smoking Tobacco: Never Smokeless Tobacco: Never Alcohol Use Standard Drinks/Week Comments Yes 3 (1 standard drink = 0.6 oz pur e alcohol) Comments No Sex and Gender Information Value Date Recorded Sex Assigned at Female 06/25/2023 1:35 PM CDT Legal Sex Female 3:22 PM JEWEL GRINDER Gender Identity Female 06/25/2023 1:35 PM CDT Sexual Orientation Straight 06/25/2023 1: 35 PM CDT documented as of this encounter Plan of Treatment Upcoming Encounters Date Type Department Care Team (Late Contact Info) Description 12/18/2024 9:00 AM CDT Office Visit [facility] Rheumatology- [facility] Fredo [address] [place] [address] Geovany Ni MD [address] [place] [address] documented as of this encounter Visit Diagnoses Not on filedocumented in this encounter Care Teams Electronics Tester Relationship Specialty Start Date End Date Ady Monk MD [address] [facility] [address] [place] [id number] PCP - General 05/29/20 documented as of this encounter
[2024-09-28 19:33] LABS: Hematocrit 40.1 % (36-47); Hemoglobin 12.90 g/dL (11.27-16.99); Mean Corpuscular HGB Conc 32.2 g/dL (30-55); Mean Corpuscular Hemoglobin 26.8 pg (27-33); Mean Corpuscular Volume 83.2 fl (85-98); Nucleated Red Blood Cells % 0 %; Platelet Count 364 10^3/cmm (157-399); Red Blood Count 4.82 10^6/uL (3.85-5.65); White Blood Count 9.40 10^3/uL (3.29-11.43)
[2024-09-28 19:47] LABS: HCG, Serum Qual Negative (Negative)
[2024-09-28 19:59] LABS: Alanine Aminotransferase 33 U/L (0-33); Albumin Level 4.4 g/dL (3.5-5.2); Alkaline Phosphatase 55 U/L (35-105); Anion Gap 17.0 (5-19); Aspartate Amino Transferase 21 U/L (0-32); Blood Urea Nitrogen 6 mg/dL (6-20); Calcium 8.8 mg/dL (8.5-10.5); Carbon Dioxide 24 mmol/L (22-29); Chloride 102 mmol/L (98-107); Creatinine Clr Calc Pharmacy 154.5640; Globulin 3.4 g/dL (1.3-4.6); Glucose 79 mg/dL (65-115); Lipase 20 U/L (13-60); Osmolality Calculated 285 mOsm/kg (285-295); Potassium 4.0 mmol/L (3.5-5.1); Sodium 139 mmol/L (136-145); Total Protein 7.8 g/dL (6.6-8.7)
--- NOTE | 2024-09-28 21:20 | W.ED.ABDPA2 ---
HPI - Abdominal Pain General: Chief Complaint: Abdominal Pain Stated Complaint: gallbladder painful Time Seen by Provider: 09/28/24 21:10 Source: patient Mode of arrival: ambulatory Limitations: no limitations History of Present Illness: Patient is a nice 34-year-old female who presents to ED today with complaint of upper quadrant abdominal pain. She states she began having diarrhea approximately 4 days ago and began noticing pain to her right upper quadrant yesterday. She is concerned this could be her gallbladder. She does feel like pain radiates like a band around her abdomen and up into her shoulders. She feels like pain is worse with eating. She has felt incredibly nauseous and has had a few episodes of nonbloody/nonbilious emesis. She is not having any fevers. Denies any yellowing to her skin or eyes. Clinically arrives in no acute distress with stable vital signs. MD elicited complaint: abdominal pain Pertinent past history: none Onset (ago): day(s) Pain Consistency: constant Location: RUQ Severity: moderate Pain scale (0-10): 5 Migration to: no migration Exacerbating factors: eating and movement Relieving factors: nothing Associated Symptoms: Reports diarrhea, nausea and vomiting; Denies chills, dysuria, fever(s) and hematemesis Related Data Home Medications ?Medication ?Instructions ?Recorded ?Confirmed citalopram 20 mg tablet 20 mg PO BEDTIME 09/19/22 08/08/24 levonorgestrel 20.4 mcg/24 hr (up intrauterine 08/02/24 08/08/24 to 8 yrs) 52 mg intrauterine device (Liletta) Previous Rx's ?Medication ?Instructions ?Recorded tofacitinib 11 mg tablet,extended 11 mg PO DAILY 90 days #90 tabs 09/30/23 release 24 hr (Xeljanz XR) clonidine HCl 0.1 mg tablet 0.1 mg PO Q4H PRN hypertensive 08/02/24 emergency #40 tabs clonidine HCl 0.1 mg tablet 0.2 mg (2 x 0.1 mg) PO ONCE #2 tabs 08/02/24 metoprolol tartrate 50 mg tablet 50 mg PO BID blood pressure #120 08/02/24 tabs cefdinir 300 mg capsule 300 mg PO BID 10 days #20 caps 09/29/24 Allergies Allergy/AdvReac Type Severity Reaction Status Date / Time amoxicillin Allergy hives--Can Verified 08/08/24 08:37 take Keflex Penicillins Allergy ALGY-Hives Verified 08/08/24 08:37 Sulfa (Sulfonamide Allergy hives Verified 08/08/24 08:37 Antibiotics) sulfamethoxazole (From Allergy hives Verified 08/08/24 08:37 Bactrim) trimethoprim (From Bactrim) Allergy hives Verified 08/08/24 08:37 Review of Systems Const: Denies: fever(s), chills, body aches, fatigue or malaise Card: Denies: chest pain Resp: Denies: dyspnea GI: Reports: abdominal pain, nausea, vomiting and diarrhea; Denies: hematemesis : Denies: flank pain, difficulty voiding, dysuria, urinary frequency, urinary urgency or urinary hesitancy Musc: Denies: neck pain, back pain, extremity pain, extremity swelling, joint pain, joint swelling or joint redness Skin/Breast: Denies: rash Neuro: Denies: headache(s), numbness in extremities, weakness in extremities, sensory changes or dizziness PFS ED PFSH: Medical History Acne Had pretty severe acne and was taking Accutane and other treatment under color depositing machine tender Dr. Harden in [facility] in [place]. Her last treatment was in May or June 2019. Not currently on any medication other than Lorie Psoriasis /Scleritis---did take methotrexate in the past for the psoriasis. She was started on Xeljanz in June 2020 managed by her physician credentialing specialist Dr. Ni in [facility] No pertinent past medical history Denies diabetes, hypertension, seizures, DVT/PE. Her primary care doctor is Dr. Monk. Anxiety as acute reaction to exceptional stress Since her in November 2018 of her myocardial infarction she has been on medication and seeing the therapist Ms Bridges and states that symptoms are well controlled with these interventions. Asthma States that she has had asthma as a child. Now uses her inhaler a couple of times a year Surgical History H/O removal of cyst Removal of right labial cyst; Done on 06/30/[address] Prieto at [facility]. Pathology showed inflammatory cyst and granulation tissue. S/P wisdom tooth extraction 2010 S/P tonsillectomy 2013, denies problems with anesthesia Family History Grandmother Heart disease Paternal great grandmother Hypertension maternal and paternal Breast cancer maternal, age at diagnosis unknown Mother Diabetes Hypertension Family/Other Thyroid disease cousin paternal aunt Breast cancer materna aunt, diagnosed in her 50s Denies family history of Cervical cancer Colon cancer Ovarian cancer DVT (deep venous thrombosis) Bleeding disorder Pulmonary embolism Uterine cancer Social History Smoking and tobacco/nicotine status: never used tobacco/nicotine Alcohol intake: never Substance/Drug Use: current Physical Exam Const: COMMON NORMALS: no acute distress, patient oriented x3, no limitations, alert and well nourished GENERAL APPEARANCE: cooperative NUTRITIONAL APPEARANCE: obese (BMI 37.8) Eye: COMMON NORMALS: no scleral icterus Resp: COMMON NORMALS: normal respiratory effort and clear to auscultation bilaterally AUSCULTATION: clear to auscultation bilaterally Cardio: COMMON NORMALS: regular rate and regular rhythm RATE: regular rate RHYTHM: regular rhythm GI: COMMON NORMALS: Normal to inspection, nondistended, normoactive bowel sounds present, Soft to palpation and no masses INSPECTION: Yes normal to inspection PALPATION: Yes Soft to palpation, Yes Tenderness to palpation present (GI) (RUQ), No Guarding due to palpation present (GI) and No Rigid due to palpation : COMMON NORMALS: Yes no CVA tenderness BLADDER/KIDNEY EXAM: Yes no CVA tenderness Back/Pelvis: COMMON NORMALS: no CVA tenderness Extremity: GENERAL: Yes normal exam except as noted Neuro: COMMON NORMALS: patient oriented x3 SENSORIUM/ORIENTATION: Yes alert Course Vital Signs: Vital signs: Vital Signs Temperature 98.4 F 09/28/24 17:25 Pulse Rate 72 09/28/24 23:58 Respiratory Rate 16 09/28/24 17:25 Blood Pressure 130/73 09/28/24 23:58 Pulse Oximetry 93 09/28/24 23:58 Oxygen Delivery Me thod Room Air 09/28/24 21:41 MDM - Abdominal Pain Medical Decision Making Patient clinically appears in no acute distress. Vital signs are stable. Blood work overall is unremarkable. She has a normal white count. Normal LFTs. UA suspicious for infection with a cloudy appearance, 3+ blood, 3+ leukocyte esterase, 51-[address] Will [address] her on antibiotics. US gallbladder ordered based on her symptoms and essentially unremarkable apart from probable hepatic steatosis. CT imaging based on her pain and UA findings. This was essentially unremarkable-no evidence of urolithiasis or obstructive uropathy. Will have patient follow-up with general surgery for further evaluation and possible HIDA scan. Return to ED precautions discussed. Medical Records I reviewed the patient's medical records. Lab Data I reviewed the patient's lab results. 09/28/24 19:06 09/28/24 19:06 Labs/Radiology: Radiology Impressions Gallbladder Ultrasound 09/28/24 21:41 IMPRESSION: 1. Probable hepatic steatosis. Correlate with liver function tests. 2. Somewhat geographic area of relative hepatic hypoechogenicity adjacent to the gallbladder fossa. Suspected focal fatty sparing. Consider follow-up nonemergent MRI liver without and with contrast. 3. No acute process. Abdomen/Pelvis CT 09/28/24 22:34 IMPRESSION: 1. No evidence of urolithiasis, obstructive uropathy, or other acute abdominal or pelvic process. 2. Hepatic steatosis. Laboratory Results WBC 9.40 10^3/uL (3.29-11.43) 09/28/24 19:06 RBC 4.82 10^6/uL (3.85-5.65) 09/28/24 19:06 Hgb 12.90 g/dL (11.27-16.99) 09/28/24 19:06 Hct 40.1 % (36-47) 09/28/24 19:06 MCV 83.2 fl (85-98) L 09/28/24 19:06 MCH 26.8 pg (27-33) L 09/28/24 19:06 MCHC 32.2 g/dL (30-55) 09/28/24 19:06 RDW 13.7 % (12.1-15.1) 09/28/24 19:06 Plt Count 364 10^3/cmm (157-399) 09/28/24 19:06 MPV 9.1 fL (7.4-10.4) 09/28/24 19:06 Neut % (Auto) 73.9 % 09/28/24 19:06 Lymph % (Auto) 17.2 % 09/28/24 19:06 [place] % (Auto) 7.4 % 09/28/24 19:06 Eos % (Auto) 1.0 % 09/28/24 19:06 Baso % (Auto) 0.2 % 09/28/24 19:06 Neut # (Auto) 6.94 10^3/uL (1.8-7.7) 09/28/24 19:06 Lymph # (Auto) 1.6 10^3/uL (0.8-4.8) 09/28/24 19:06 [place] # (Auto) 0.7 10^3/uL (0.2-0.9) 09/28/24 19:06 Eos # (Auto) 0.1 10^3/uL (0.0-0.8) 09/28/24 19:06 Baso # (Auto) 0.0 10^3/uL (0.0-0.1) 09/28/24 19:06 Nucleated RBC % (auto) 0 % 09/28/24 19:06 Nucleated RBCs # 0.0 /100WBC 09/28/24 19:06 Sodium 139 mmol/L (136-145) 09/28/24 19:06 Potassium 4.0 mmol/L (3.5-5.1) 09/28/24 19:06 Chloride 102 mmol/L (98-107) 09/28/24 19:06 Carbon Dioxide 24 mmol/L (22-29) 09/28/24 19:06 Anion Gap 17.0 (5-19) 09/28/24 19:06 BUN 6 mg/dL (6-20) 09/28/24 19:06 Creatinine 0.6 mg/dL (0.5-0.9) 09/28/24 19:06 GFR Calculation 115.9 mL/min (90-130) 09/28/24 19:06 Glucose 79 mg/dL (65-115) 09/28/24 19:06 Calculated Osmolality 285 mOsm/kg (285-295) 09/28/24 19:06 Calcium 8.8 mg/dL (8.5-10.5) 09/28/24 19:06 Total Bilirubin 0.3 mg/dL (0.15-1.2) 09/28/24 19:06 AST 21 U/L (0-32) 09/28/24 19:06 ALT 33 U/L (0-33) 09/28/24 19:06 Alkaline Phosphatase 55 U/L (35-105) 09/28/24 19:06 Total Protein 7.8 g/dL (6.6-8.7) 09/28/24 19:06 Albumin 4.4 g/dL (3.5-5.2) 09/28/24 19:06 Globulin 3.4 g/dL (1.3-4.6) 09/28/24 19:06 Lipase 20 U/L (13-60) 09/28/24 19:06 HCG, Qual Negative (Negative) 09/28/24 19:06 Urine Color Yellow (Yellow) 09/28/24 21:47 Urine Appearance Cloudy (CLEAR) A 09/28/24 21:47 Urine pH 6.5 (5-7) 09/28/24 21:47 Ur Specific [place] 1.012 (1.005-1.030) 09/28/24 21:47 Urine Protein Negative (Negative) 09/28/24 21:47 Urine Glucose (UA) Negative (Normal) 09/28/24 21:47 Urine Ketones Negative (Negative) 09/28/24 21:47 Urine Blood 3+ (Negative) A 09/28/24 21:47 Urine Nitrate Negative (Negative) 09/28/24 21:47 Urine Bilirubin Negative (Negative) 09/28/24 21:47 Urine Urobilinogen 1.0 mg/dL (Negative) 09/28/24 21:47 Ur Leukocyte Esterase 3+ (Negative) A 09/28/24 21:47 Urine RBC 6-10 /hpf (0-2) 09/28/24 21:47 Urine WBC 51-100 /hpf (0-5) H 09/28/24 21:47 Ur Squamous Epith Cells 6-10 /hpf (0-5) 09/28/24 21:47 Amorphous Sediment Not Reportable 09/28/24 21:47 Urine Bacteria 4+ /hpf (NONE) H 09/28/24 21:47 Hyaline Casts 2.05 /lpf 09/28/24 21:47 All radiology interpretation(s) finalized by discharge Discharge Plan Discharge Patient Disposition: Home Clinical Impression: Abdominal pain, RUQ UTI (urinary tract infection) Qualifiers: Urinary tract infection type: acute cystitis Hematuria presence: with hematuria Qualified Code(s): N30.01 - Acute cystitis with hematuria Condition: Stable Prescriptions: New cefdinir 300 mg capsule 300 mg PO BID 10 Days Qty: 20 0RF No Action Xeljanz XR 11 mg tablet extended release 24 hr 11 mg PO DAILY 90 Days Qty: 90 3RF Liletta 20.4 mcg/24 hr (8 yrs) 52 mg intrauterine device intrauterine clonidine HCl 0.1 mg tablet 0.2 mg PO ONCE Qty: 2 0RF clonidine HCl 0.1 mg tablet 0.1 mg PO Q4H PRN (Reason: hypertensive emergency) Qty: 40 1RF metoprolol tartrate 50 mg tablet 50 mg PO BID Qty: 120 1RF Rx Instructions: begin w 1/2 tablet twice daily citalopram 20 mg tablet 20 mg PO BEDTIME Discharge Orders: Discharge ED (Routine); Ordered 09/29/24 Ordered By: Evelyne Noel Referrals: Ady Monk MD [Primary Care Provider, Family Practice] Patient Instructions: Abdominal Pain (ED), Patient Portal & [place] Instructions Activity Restrictions/Additional Instructions: As we discussed, blood work here was unremarkable. Liver enzymes were normal. Urine looks suspicious for urinary tract infection so we will put you on antibiotics for this. We will have you follow-up with general surgery for further evaluation of your right upper quadrant abdominal pain and evaluation for possible HIDA scan. You need to return to the emergency department at anytime for worsening pain, repetitive episodes of vomiting, yellowing to your skin or eyes, fevers, generally feeling worse or unwell, or any other concerns you may have. Print Language: Belgian Coding Level of Care Code ED Single Wire Saw Operator for Cassius Emerson
[2024-09-28 21:41] VITALS: BP 155/107; PULSE 72; O2SAT 98
--- NOTE | 2024-09-28 21:41 | USR_ITS ---
PROCEDURE INFORMATION: Exam: US Abdomen, Limited; Right Upper Quadrant Exam date and time: 09/28/2024 11:41 PM Age: 34 years old Clinical indication: Abdominal pain; Localized; Right upper quadrant (ruq); Additional info: Ruq pain TECHNIQUE: Imaging protocol: Real time ultrasound of the abdomen with image documentation. Limited exam focused on the right upper quadrant. COMPARISON: [place] [id number] 12/29/2022 3:18 PM FINDINGS: Liver: The liver demonstrates mildly elevated parenchymal echogenicity, slightly coarsened echotexture, and attenuation of the sound beam. No focal hepatic lesion identified. Somewhat geographic area of relative hepatic hypoechogenicity adjacent to the gallbladder fossa. Gallbladder: Normal. No gallstones. There is no gallbladder wall thickening. Biliary ducts: Normal. No stones. No dilation. Pancreas: Visualized pancreas is unremarkable. Right kidney: Normal. No mass. No hydronephrosis. US/US gall bladder [id number] IMPRESSION: 1. Probable hepatic steatosis. Correlate with liver function tests. 2. Somewhat geographic area of relative hepatic hypoechogenicity adjacent to the gallbladder fossa. Suspected focal fatty sparing. Consider follow-up nonemergent MRI liver without and with contrast. 3. No acute process.
[2024-09-28 22:00] LABS: Glucose Urine UA Negative (Normal); Nitrate Urine Negative (Negative); Specific Gravity, Urine 1.012 (1.005-1.030)
[2024-09-28 22:10] LABS: Add Urine Microscopic? YES
[2024-09-28 22:13] LABS: UA Slide Review UA Slide Review Perf
--- NOTE | 2024-09-28 22:34 | CTR_ITS ---
PROCEDURE INFORMATION: Exam: CT Abdomen And Pelvis Without Contrast Exam date and time: 09/28/2024 10:51 PM Age: 34 years old Clinical indication: Fever and nausea and vomiting; Abdominal pain; Localized; Right upper quadrant (ruq); Prior surgery; Surgery date: 6+ months; Surgery type: Iud; Ruq pain with n/v adn fever. Hematuria. ; Additional info: Ruq pain, hematuria/uti TECHNIQUE: Imaging protocol: Computed tomography of the abdomen and pelvis without contrast. Radiation optimization: All CT scans at this facility use at least one of these dose optimization techniques: automated exposure control; mA and/or kV adjustment per patient size (includes targeted exams where dose is matched to clinical indication); or iterative reconstruction. COMPARISON: CT abdomen pelvis w con* [id number] 04/12/2021 7:35 PM RADIATION DOSE METRICS: Total DLP (mGy-cm): 961.03 FINDINGS: Liver: Diffuse hepatic hypoattenuation. Gallbladder and biliary ducts: Normal. No calcified stones. No ductal dilation. Pancreas: Normal. No ductal dilation. Spleen: Normal. No splenomegaly. Adrenal glands: Normal. No mass. Kidneys and ureters: Normal. No hydronephrosis. Stomach and bowel: Unremarkable. No obstruction. No mucosal thickening. Appendix: No evidence of appendicitis. Intraperitoneal space: Unremarkable. No free air. No significant fluid collection. Vasculature: Unremarkable. No abdominal aortic aneurysm. Lymph nodes: Unremarkable. No enlarged lymph nodes. Urinary bladder: Unremarkable as visualized. Reproductive: Unremarkable as visualized. Intrauterine contraceptive device. Bones/joints: Unremarkable. No acute fracture. Soft tissues: Unremarkable. CT/CT kidney stone [id number] IMPRESSION: 1. No evidence of urolithiasis, obstructive uropathy, or other acute abdominal or pelvic process. 2. Hepatic steatosis.
[2024-09-28 23:58] VITALS: BP 130/73; PULSE 72; O2SAT 93
[2024-09-29 00:32] VITALS: BP 117/78; PULSE 70; O2SAT 96
== END 2024-09-29 00:34 | disposition home or self-care (01) ==
PROVIDERS: Emergency Provider Physician Assistant; PCP Family Medicine
DX: R10.11 Right upper quadrant pain (principal); N30.01 Acute cystitis with hematuria
CPT/HCPCS: 36415; 74176; 76705; 80053; 81001; 83690; 84703; 85025; 87086; 99284; J9999

== ENCOUNTER 2024-12-28 14:45 | Emergency (ER) | payer BC, SELFPAY ==
[2024-12-28 14:47] VITALS: BP 153/104; PULSE 75; RESP 16; TEMP 36.5; O2SAT 100; BMI 37.8
--- NOTE | 2024-12-28 14:47 | XRR_ITS ---
PROCEDURE INFORMATION: Exam: XR Right Shoulder Exam date and time: 12/28/2024 3:30 PM Age: 34 years old Clinical indication: Right; RT shoulder/neck pain/tension xs 1 day; No known injury TECHNIQUE: Imaging protocol: Radiologic exam of the right shoulder. Views: 2 or more views. COMPARISON: CR XR chest 2V* [id number] 03/19/2019 5:33 PM FINDINGS: Bones/joints: Normal. Soft tissues: Normal. XR/XR shoulder RT min 2V* [id number] IMPRESSION: No acute findings.
--- NOTE | 2024-12-28 15:32 | W.ED.EXTPRO ---
HPI - Extremity Problem General: Chief complaint: Extremity Injury, Upper Stated complaint: R shoulder Pain swelling Time Seen by Provider: 12/28/24 15:16 Source: patient Mode of arrival: ambulatory Limitations: no limitations History of Present Illness: Patient is a 34-year-old female presents to ED today with a complaint of right shoulder pain. Patient states she has a longstanding history of pain in that shoulder. She states she woke up with pain this morning that has continued throughout the day. She feels like pain is mainly located to her posterior shoulder and worse with range of motion. She does sometimes get pain radiating down into her arm. She is not having any neck pain or neck stiffness. No fevers. No headache. She feels like she can move her neck freely. Denies any numbness or tingling to the arm. Has not noticed any weakness to her arm. No known recent injury or trauma. MD Complaint: joint pain Onset (ago): hour(s) Pain Consistency: constant Location: right and upper extremity Radiation: none Relieving factors: immobilization Exacerbating factors: range of motion Associated symptoms: Reports no associated symptoms Related Data Home Medications ?Medication ?Instructions ?Recorded ?Confirmed citalopram 20 mg tablet 20 mg PO BEDTIME 09/19/22 08/08/24 levonorgestrel 20.4 mcg/24 hr (up intrauterine 08/02/24 08/08/24 to 8 yrs) 52 mg intrauterine device (Liletta) Previous Rx's ?Medication ?Instructions ?Recorded tofacitinib 11 mg tablet,extended 11 mg PO DAILY 90 days #90 tabs 09/30/23 release 24 hr (Xeljanz XR) clonidine HCl 0.1 mg tablet 0.1 mg PO Q4H PRN hypertensive 08/02/24 emergency #40 tabs clonidine HCl 0.1 mg tablet 0.2 mg (2 x 0.1 mg) PO ONCE #2 tabs 08/02/24 metoprolol tartrate 50 mg tablet 50 mg PO BID blood pressure #120 08/02/24 tabs ibuprofen 800 mg tablet 800 mg PO Q8H PRN pain #20 tabs 12/28/24 methocarbamol 500 mg tablet 1,000 mg (2 x 500 mg) PO Q8H #30 12/28/24 tabs prednisone 10 mg tablet 10 mg PO DAILY 7 days #27 tabs 12/28/24 Allergies Allergy/AdvReac Type Severity Reaction Status Date / Time amoxicillin Allergy hives--Can Verified 12/28/24 14:49 take Keflex Penicillins Allergy ALGY-Hives Verified 12/28/24 14:49 Sulfa (Sulfonamide Allergy hives Verified 12/28/24 14:49 Antibiotics) sulfamethoxazole (From Allergy hives Verified 12/28/24 14:49 Bactrim) trimethoprim (From Bactrim) Allergy hives Verified 12/28/24 14:49 Review of Systems Musc: Reports: joint pain (R shoulder); Denies: neck pain, back pain, extremity pain, extremity swelling, joint redness, joint warmth, joint stiffness or muscle weakness Neuro: Denies: numbness in extremities, weakness in extremities or sensory changes PFSH ED PFSH: Medical History Acne Had pretty severe acne and was taking Accutane and other treatment under international accountant Dr. Harden in [facility] in [place]. Her last treatment was in May or June 2019. Not currently on any medication other than Lorie Psoriasis /Scleritis---did take methotrexate in the past for the psoriasis. She was started on Xeljanz in June 2020 managed by her patent prosecution paralegal Dr. Ni in [facility] No pertinent past medical history Denies diabetes, hypertension, seizures, DVT/PE. Her primary care doctor is Dr. Monk. Anxiety as acute reaction to exceptional stress Since her in November 2018 of her myocardial infarction she has been on medication and seeing the therapist Ms Brigdes and states that symptoms are well controlled with these interventions. Asthma States that she has had asthma as a child. Now uses her inhaler a couple of times a year Surgical History H/O removal of cyst Removal of right labial cyst; Done on 06/30/[address] Prieto at [facility]. Pathology showed inflammatory cyst and granulation tissue. S/P wisdom tooth extraction 2010 S/P tonsillectomy 2013, denies problems with anesthesia Family History Grandmother Heart disease Paternal great grandmother Hypertension maternal and paternal Breast cancer maternal, age at diagnosis unknown Mother Diabetes Hypertension Family/Other Thyroid disease cousin paternal aunt Breast cancer materna aunt, diagnosed in her 50s Denies family history of Cervical cancer Colon cancer Ovarian cancer DVT (deep venous thrombosis) Bleeding disorder Pulmonary embolism Uterine cancer Social History Smoking and tobacco/nicotine status: never used tobacco/nicotine Alcohol intake: never Substance/Drug Use: current Physical Exam Const: COMMON NORMALS: no acute distress, average body habitus, no limitations, healthy appearing, alert and well nourished GENERAL APPEARANCE: cooperative Neck/C-Spine: COMMON NORMALS: full ROM GENERAL: Yes normal visual inspection CERVICAL SPINE: Yes cervical ROM normal, No Cervical spine tenderness, No Paracervical muscle tenderness and No Lhermitte's sign positive Chest: COMMONS NORMALS: normal inspection of the chest and normal palpation of entire chest wall Resp: COMMON NORMALS: normal respiratory effort Back/Pelvis: COMMON NORMALS: thoracic and lumbar spine normal to inspection and no thoracic nor lumbar tenderness Extremity: COMMON NORMALS: normal to inspection and capillary refill normal GENERAL: Yes normal exam except as noted RIGHT UPPER EXTREMITY: Yes shoulder joint (TTP R posterior shoulder pain-reproducible with palpation and movement) Right shoulder: Yes Right shoulder joint ROM exam (limited due to pain) and Yes Right shoulder joint neurovascular exam (normal) OTHER: several tests including testing for impingement syndrome and rotator cuff tendinopathy were positive Neuro: COMMON NORMALS: moves all extremities, no focal motor deficits and no sensory deficits noted SENSORIUM/ORIENTATION: Yes alert Skin: COMMON NORMALS: no rashes or lesions noted GENERAL SKIN EXAM: no rashes or lesions noted Course Vital Signs: Vital signs: Vital Signs Temperature 97.7 F 12/28/24 14:47 Pulse Rate 75 12/28/24 14:47 Respiratory Rate 16 12/28/24 14:47 Blood Pressure 153/104 12/28/24 14:47 Pulse Oximetry 100 12/28/24 14:47 Oxygen Delivery Me thod Room Air 12/28/24 14:47 MDM - Extremity (Nontraumatic) Medical Decision Making No recent injury or trauma. I do not feel x-rays would be of much yield at this time. She does already have an appointment scheduled with primary care on Tuesday. Will treat with steroids, anti-inflammatories, muscle relaxers. Recommend other conservative therapies including ice, heat, lidocaine patches, etc. Medical Records I reviewed the patient's medical records. No radiology studies performed this visit Discharge Plan Discharge Patient Disposition: Home Clinical Impression: Acute pain of right shoulder Condition: Stable Prescriptions: New prednisone 10 mg tablet 10 mg PO DAILY 7 Days Qty: 27 0RF Rx Instructions: 6 tabs on days 1-2, 5 tabs on days 3, 4 tabs on day 4, 3 tabs on day 5, 2 tabs on day 6, 1 tab on day 7 methocarbamol 500 mg tablet 1,000 mg PO Q8H Qty: 30 0RF ibuprofen 800 mg tablet 800 mg PO Q8H PRN (Reason: pain) Qty: 20 0RF No Action Xeljanz XR 11 mg tablet extended release 24 hr 11 mg PO DAILY 90 Days Qty: 90 3RF Liletta 20.4 mcg/24 hr (8 yrs) 52 mg intrauterine device intrauterine clonidine HCl 0.1 mg tablet 0.2 mg PO ONCE Qty: 2 0RF clonidine HCl 0.1 mg tablet 0.1 mg PO Q4H PRN (Reason: hypertensive emergency) Qty: 40 1RF metoprolol tartrate 50 mg tablet 50 mg PO BID Qty: 120 1RF Rx Instructions: begin w 1/2 tablet twice daily citalopram 20 mg tablet 20 mg PO BEDTIME Discharge Orders: Discharge ED (Routine); Ordered 12/28/24 Ordered By: Evelyne Noel Referrals: Ady Monk MD [Primary Care Provider, Family Practice] Patient Instructions: Patient Portal & [place] Instructions Activity Restrictions/Additional Instructions: As we discussed, please follow-up with primary care on Tuesday as scheduled. Print Language: Slovenian Coding Level of Care Code ED Hot Packer for Cassius Emerson
[2024-12-28 15:42] VITALS: BP 140/83; PULSE 73; O2SAT 96
== END 2024-12-28 15:46 | disposition home or self-care (01) ==
PROVIDERS: Emergency Provider Physician Assistant; PCP Family Medicine
DX: M25.511 Pain in right shoulder (principal)
CPT/HCPCS: 73030; 99283

== ENCOUNTER → 2025-01-01 14:24 | Outpatient (BNVA) | payer BC, SELFPAY | PROVIDERS: PCP Family Medicine; Visit Provider Family Medicine | DX: H20.9 Unspecified iridocyclitis (principal); L40.50 Arthropathic psoriasis, unspecified; M25.511 Pain in right shoulder | CPT/HCPCS: 80053; 82550; 85025; 85651; 86140 ==